=== PATIENT | female | born 1940 | race Caucasian/White ===

== ENCOUNTER → 2016-06-28 | Outpatient (CLI) | payer OTHER | END | disposition home or self-care (01) | LOC: LAB.O 17:20 | PROVIDERS: ATTEND Nurse Practitioner Family | DX: G45.9 Transient cerebral ischemic attack, unspecified (principal) ==

== ENCOUNTER → 2016-07-06 | Outpatient (CLI) | payer OTHER | LOC: LAB.O 17:23 | PROVIDERS: ATTEND Nurse Practitioner Family | DX: G45.9 Transient cerebral ischemic attack, unspecified (principal) ==

== ENCOUNTER → 2016-07-20 | Outpatient (CLI) | payer OTHER | END | disposition home or self-care (01) | LOC: LAB 17:27 | PROVIDERS: ATTEND Nurse Practitioner Family | DX: G45.9 Transient cerebral ischemic attack, unspecified (principal) ==

== ENCOUNTER → 2016-08-04 | Outpatient (CLI) | payer OTHER | END | disposition home or self-care (01) | LOC: LAB.O 17:22 | PROVIDERS: ATTEND Orthopaedic Surgery Adult Reconstructive Orthopaedic Surgery | DX: G45.9 Transient cerebral ischemic attack, unspecified (principal); M85.89 Other specified disorders of bone density and structure, multiple sites; E55.9 Vitamin D deficiency, unspecified ==

== ENCOUNTER 2016-08-16 18:14 | Emergency (ER) | payer OTHER ==
--- NOTE | 2016-08-16 18:25 | ED.PDOC ---
History of Present Illness - General Source: patient, RN notes reviewed, Vital Signs reviewed, family Exam Limitations: no limitations - History of Present Illness Initial Comments: Patient was walking out to car after getting blood drawn as an outpatient and tripped and fell. She is having R buttock/posterior hip pain. No numbness, tingling or weakness. Occurred: just prior to arrival Pain - Lower Extremity: moderate: Right Thigh/Hip - Posterior hip/pelvis Method of Injury: fell Improving Factors: rest Worsening Factors: movement <Lita Albarran - Last Filed: 08/16/16 18:23> <Joslyn Byrd - Last Filed: 08/16/16 19:38> - General Chief Complaint: Lower Extremity Injury Stated Complaint: R buttock pain Time Seen by Provider: 08/16/16 18:22 - History of Present Illness Allergies/Adverse Reactions: Allergies Codeine Allergy (Verified 08/16/16 18:20) Penicillins Allergy (Verified 08/16/16 18:20) Home Medications: Ambulatory Orders Docusate Sodium [Stool Softener] 100 mg PO BID 10/15/15 Furosemide 20 mg PO DAILY 10/15/15 Gabapentin 400 mg PO TID 10/15/15 Isosorbide Mononitrate [Imdur] 30 mg PO DAILY 10/15/15 Omeprazole 20 mg PO DAILY 10/15/15 Ondansetron [Zofran Odt] 4 mg PO Q4H PRN #10 tab 10/15/15 Potassium Chloride [Klor-Con] 20 meq PO DAILY 10/15/15 Telmisartan 40 mg PO DAILY 10/15/15 Warfarin Sodium 4 mg PO DAILY 10/15/15 Rosuvastatin Calcium [Crestor] 10 mg PO DAILY 05/04/16 tiZANidine [Zanaflex] 4 mg PO TID PRN #30 tab 08/16/16 Review of Systems - Review of Systems Constitutional: States: no symptoms reported Musculoskeletal: States: see HPI Skin: States: no symptoms reported Neurological: States: no symptoms reported, numbness, paresthesia, tingling, weakness <Lita Albarran - Last Filed: 08/16/16 18:23> Past Medical History (General) - Patient Medical History Hx Seizures: No Hx Stroke: Yes - CVA,TIA's Hx Dementia: No Hx Asthma: No Hx of COPD: No Hx Cardiac Disorders: Yes - CABG Hx Congestive Heart Failure: Yes Hx Pacemaker: No Hx Hypertension: Yes Hx Thyroid Disease: Yes Hx Diabetes: No Hx Gastroesophageal Reflux: Yes Hx Renal Disease: No Hx Cancer: No - Vaccination History Hx Tetanus, Diphtheria Vaccination: No Hx Influenza Vaccination: No Hx Pneumococcal Vaccination: Yes - Social History Hx Tobacco Use: No Hx Alcohol Use: No Hx Depression: No <Lita Albarran - Last Filed: 08/16/16 18:23> Family Medical History - Family History Mother Family History: Unknown Living Status: <Lita Albarran - Last Filed: 08/16/16 18:23> Physical Exam - Physical Exam General Appearance: Alert, Comfortable, Frail, No apparent distress, Well Groomed, Well Hydrated, Well Nourished Cardiovascular/Respiratory: normal peripheral pulses Thigh/Hip: bone tenderness - R posterior pelvis/SI joint, soft tissue tenderness , other - Good ROM in hip joint Leg: normal inspection, non-tender, no evidence of injury, normal ROM Ankle: normal inspection, non-tender, no evidence of injury, normal ROM Foot: normal inspection, non-tender, no evidence of injury, normal ROM Neuro/Tendon: normal sensation, normal motor functions, normal tendon functions Mental Status: alert, oriented x 3 <Lita Albarran - Last Filed: 08/16/16 18:23> Progress - Progress Progress: 08/16/16 19:31 Patient has severe osteoporosis and has a provider in [place] that she sees for this--Benjamin Donaldson PA-C. She has an appointment with him in 3 days. She will be given a copy of her x-ray report so that he may determine if Patient needs an MRI. Patient has Tramadol at home for pain. She will be given a prescription for a muscle relaxer as well. - Results/Orders Results/Orders: 08/16/16 18:20 Temperature 98 F Pulse Rate [ 68 Left Apical] Respiratory 20 Rate Blood Pressure 122/59 [Left Arm] O2 Sat by Pulse 99 Oximetry - EKG/XRAY/CT XRAY: pelvis Xray Comments: Limited ability to assess for subacute fracture, lucency at joint space. <Joslyn Byrd - Last Filed: 08/16/16 19:38> Departure <Lita Albarran - Last Filed: 08/16/16 18:23> - Departure ICD-10 Supporting Text: Contusion of right buttock just inferior/lateral to sacroiliac joint. Time of Disposition: 19:35 Diet: resume usual diet <Joslyn Byrd - Last Filed: 08/16/16 19:38> - Departure Clinical Impression: Contusion Qualifiers: Encounter type: initial encounter Contusion area: lower back Qualifier Code: ( S30.0XXA) Contusion of lower back and pelvis, initial encounter Sacroiliac (ligament) sprain Qualifiers: Encounter type: initial encounter Qualifier Code: (S33.6XXA) Sprain of sacroiliac joint, initial encounter Disposition: Discharge to Home or Self Care Condition: Fair Departure Forms: ED Discharge - Pt. Copy, Patient Portal Self Enrollment Referrals: CAMERON WILSON IV, [employer] [Primary Care Provider] - 1-2 Weeks Prescriptions: tiZANidine [Zanaflex] 4 mg PO TID PRN #30 tab PRN Reason: Muscle Spasms Home Medications: Ambulatory Orders Docusate Sodium [Stool Softener] 100 mg PO BID 10/15/15 Furosemide 20 mg PO DAILY 10/15/15 Gabapentin 400 mg PO TID 10/15/15 Isosorbide Mononitrate [Imdur] 30 mg PO DAILY 10/15/15 Omeprazole 20 mg PO DAILY 10/15/15 Ondansetron [Zofran Odt] 4 mg PO Q4H PRN #10 tab 10/15/15 Potassium Chloride [Klor-Con] 20 meq PO DAILY 10/15/15 Telmisartan 40 mg PO DAILY 10/15/15 Warfarin Sodium 4 mg PO DAILY 10/15/15 Rosuvastatin Calcium [Crestor] 10 mg PO DAILY 05/04/16 tiZANidine [Zanaflex] 4 mg PO TID PRN #30 tab 08/16/16 Additional Instructions: Keep appointment on 08/20/2016 with Benjamin Donaldson PA-C. Follow up in ED for any decreased ability to walk or increased pain.
--- NOTE | 2016-08-16 19:09 | RAD ---
EXAM: Pelvis,2 or More Views CLINICAL INDICATION: 75-year-old female with pain in RIGHT sacroiliac joint status post fall. COMPARISON: None. TECHNIQUE: Two views of the pelvis were obtained in frontal and frog-leg projection. FINDINGS: There is no fracture or dislocation. The joint spaces are preserved. No soft tissue abnormalities are seen. The mid to distal sacrum is poorly visualized secondary to overlying bowel gas and fecal content. The bones are diffusely demineralized limiting assessment for subtle fracture. LEFT total hip arthroplasty present with hardware components in gross anatomic alignment. Approximately 3 mm of lucency surrounds the femoral stem incompletely visualized raising the concern for age indeterminate loosening. IMPRESSION: 1. Degenerative change and diffuse demineralization limiting assessment for subtle acute fracture, however without gross acute radiographic abnormality. If there is clinical concern for sacroiliac insufficiency fracture or gross acute fracture, MRI is recommended. 2. Approximately 3 mm of lucency surrounds the femoral stem incompletely visualized raising the concern for age indeterminate loosening. Electronically signed by: Shannan Helton MD 08/16/2016 7:08 PM CDT
[2016-08-16] MEDS ORDERED: tiZANidine 4 MG TAB PO ONE (19:30)
[2016-08-16] MEDS ORDERED: ACETAMINOPHEN 325 MG TAB PO ONE (19:30)
[2016-08-16 19:51] VITALS: BP 119/51; TEMP 98; O2SAT 98
== END 2016-08-16 19:51 | disposition home or self-care (01) ==
LOC: ER 18:14
DX: S30.0XXA Contusion of lower back and pelvis, initial encounter (principal); S33.6XXA Sprain of sacroiliac joint, initial encounter; I11.0 Hypertensive heart disease with heart failure; I50.9 Heart failure, unspecified; E07.9 Disorder of thyroid, unspecified; K21.9 Gastro-esophageal reflux disease without esophagitis; Z86.73 Personal history of transient ischemic attack (TIA), and cerebral infarction without residual deficits; Z95.1 Presence of aortocoronary bypass graft; Z79.899 Other long term (current) drug therapy; Z79.01 Long term (current) use of anticoagulants; Z88.6 Allergy status to analgesic agent; Z88.0 Allergy status to penicillin; W01.0XXA Fall on same level from slipping, tripping and stumbling without subsequent striking against object, initial encounter; Y92.481 Parking lot as the place of occurrence of the external cause

== ENCOUNTER → 2016-08-16 | Outpatient (CLI) | payer OTHER | END | disposition home or self-care (01) | LOC: LAB 17:45 | PROVIDERS: ATTEND Nurse Practitioner Family | DX: G45.9 Transient cerebral ischemic attack, unspecified (principal) ==

== ENCOUNTER → 2016-09-16 | Outpatient (CLI) | payer OTHER | END | disposition home or self-care (01) | LOC: LAB.O 17:26 | PROVIDERS: ATTEND Nurse Practitioner Family | DX: G45.9 Transient cerebral ischemic attack, unspecified (principal) ==

== ENCOUNTER → 2016-11-10 | Outpatient (CLI) | payer OTHER | LOC: LAB.O 17:27 | PROVIDERS: ATTEND Nurse Practitioner Family | DX: G45.9 Transient cerebral ischemic attack, unspecified (principal) ==

== ENCOUNTER → 2017-01-05 | Outpatient (CLI) | payer OTHER | END | disposition home or self-care (01) | LOC: LAB.O 17:33 | PROVIDERS: ATTEND Nurse Practitioner Family | DX: G45.9 Transient cerebral ischemic attack, unspecified (principal) ==

== ENCOUNTER 2017-01-17 04:36 | Emergency (ER) | payer OTHER ==
[2017-01-17 04:55] VITALS: TEMP 97.7; O2SAT 96
--- NOTE | 2017-01-17 05:10 | ED.PDOC ---
History of Present Illness - General Chief Complaint: Upper Extremity Injury Stated Complaint: left inner wrist pain radiates to elbow Time Seen by Provider: 01/17/17 05:03 Source: patient, RN notes reviewed, Vital Signs reviewed Exam Limitations: no limitations - History of Present Illness Initial Comments: Patient comes in with L hand/wrist pain that started last night. Pain kept her awake. Does not recall any injury. She did have a blister show up on the lateral aspect of her wrist on Tuesday. She accidentally popped it. Occurred: yesterday Pain - Upper Extremity: moderate: Hand, left Method of Injury: unknown Improving Factors: nothing Worsening Factors: nothing Allergies/Adverse Reactions: Allergies Codeine Allergy (Verified 01/17/17 04:55) Penicillins Allergy (Verified 01/17/17 04:55) Home Medications: Ambulatory Orders Docusate Sodium [Stool Softener] 100 mg PO BID 10/15/15 Furosemide 20 mg PO DAILY 10/15/15 Gabapentin 400 mg PO TID 10/15/15 Isosorbide Mononitrate [Imdur] 30 mg PO DAILY 10/15/15 Omeprazole 20 mg PO DAILY 10/15/15 Potassium Chloride [Klor-Con] 20 meq PO DAILY 10/15/15 Telmisartan 40 mg PO DAILY 10/15/15 Warfarin Sodium 4 mg PO DAILY 10/15/15 Rosuvastatin Calcium [Crestor] 10 mg PO DAILY 05/04/16 Cholecalciferol [Vitamin D] 1,000 unit PO DAILY 01/17/17 Sulfa/Trimeth 800/160 (Ds) Tab [Bactrim DS Tab] 1 ea PO BID #14 tab 01/17/17 Thyroid [[place] Thyroid] 15 mg PO DAILY 01/17/17 Review of Systems - Review of Systems Constitutional: States: no symptoms reported Respiratory: States: no symptoms reported Cardiology: States: no symptoms reported Musculoskeletal: States: see HPI Skin: States: see HPI Neurological: States: no symptoms reported. Denies: numbness, paresthesia, tingling, weakness All other Systems: No Change from Baseline Past Medical History (General) - Patient Medical History Hx Seizures: No Hx Stroke: Yes - CVA,TIA's Hx Dementia: No Hx Asthma: No Hx of COPD: No Hx Cardiac Disorders: Yes - CABG Hx Congestive Heart Failure: Yes Hx Pacemaker: No Hx Hypertension: Yes Hx Thyroid Disease: Yes Hx Diabetes: No Hx Gastroesophageal Reflux: Yes Hx Renal Disease: No Hx Cancer: No Hx of HIV: No Hx Hepatitis C: No Hx MRSA: No Surgical History: appendectomy, cholecystectomy, Hysterectomy - Vaccination History Hx Tetanus, Diphtheria Vaccination: No Hx Influenza Vaccination: No Hx Pneumococcal Vaccination: Yes - Social History Hx Tobacco Use: No Hx Chewing Tobacco Use: No Hx Alcohol Use: No Hx Substance Use: No Hx Substance Use Treatment: No Hx Depression: No Feels Threatened In Home Enviroment: No Feels Threatened In a Relationship: No Hx Physical Abuse: No Hx Emotional Abuse: No Hx Suspected Abuse: No - Female History Patient : No Family Medical History - Family History Mother Family History: Unknown Living Status: Hx Family Asthma: No Physical Exam - Physical Exam General Appearance: Alert, Anxious, Comfortable, No apparent distress, Well Developed, Well Groomed, Well Hydrated, Well Nourished Cardiovascular/Respiratory: no respiratory distress Elbow/Forearm Exam: normal inspection, no evidence of injury, normal ROM, soft tissue tenderness - distal forearm Wrist Exam: normal ROM, abrasions, pain, soft tissue tenderness - lateral aspect of L wrist: central wound, superficial, with mild surrounding erythema, tenderness & warmth Hand Exam: normal inspection, no evidence of injury, bone tenderness - L hand tender over metacarpals 1-4 w/ no obvious injury or deformity, soft tissue tenderness Neuro/Tendon: normal sensation, normal motor functions, normal tendon functions , responds to pain, no evidence tendon injury Mental Status: alert, oriented x 3 Skin Exam: normal color - except area on L lateral wrist: erythematous, tender and mildly swollen w/ central wound., warm/dry Comments: Vital Signs 01/17/17 04:44 Temperature 97.7 F Pulse Rate [ 70 monitor] Respiratory 18 Rate Blood Pressure 167/82 [Left Arm] O2 Sat by Pulse 96 Oximetry Progress - Progress Progress: 01/17/17 05:14 Most likely an early cellulitis but will get X-ray given nigel tenderness of hand away from area of obvious cellulitis. 01/17/17 05:45 Discussed potential interaction of Warfarin and Bactrim. Recommended getting INR checked on Tuesday to make sure her blood is not getting too thin. - EKG/XRAY/CT Xray Comments: L hand/wrist: no fracture, osteopenia Departure - Departure Clinical Impression: Cellulitis of wrist Time of Disposition: 05:46 Disposition: Discharge to Home or Self Care Condition: Good Departure Forms: ED Discharge - Pt. Copy, Patient Portal Self Enrollment Instructions: DI for Cellulitis -- Adult Diet: resume usual diet Activity: increase activity as tolerated Referrals: CAMERON WILSON IV, [employer] DEMON[employer]ATOR [Primary Care Provider] - 1-2 Weeks Prescriptions: Sulfa/Trimeth 800/160 (Ds) Tab [Bactrim DS Tab] 1 ea PO BID #14 tab Home Medications: Ambulatory Orders Docusate Sodium [Stool Softener] 100 mg PO BID 10/15/15 Furosemide 20 mg PO DAILY 10/15/15 Gabapentin 400 mg PO TID 10/15/15 Isosorbide Mononitrate [Imdur] 30 mg PO DAILY 10/15/15 Omeprazole 20 mg PO DAILY 10/15/15 Potassium Chloride [Klor-Con] 20 meq PO DAILY 10/15/15 Telmisartan 40 mg PO DAILY 10/15/15 Warfarin Sodium 4 mg PO DAILY 10/15/15 Rosuvastatin Calcium [Crestor] 10 mg PO DAILY 05/04/16 Cholecalciferol [Vitamin D] 1,000 unit PO DAILY 01/17/17 Sulfa/Trimeth 800/160 (Ds) Tab [Bactrim DS Tab] 1 ea PO BID #14 tab 01/17/17 Thyroid [[place] Thyroid] 15 mg PO DAILY 01/17/17 Additional Instructions: Hot compresses to wrist 3-5X/day Get INR checked on Tuesday due to potential interaction with Bactrim and Warfarin.
--- NOTE | 2017-01-17 05:41 | RAD ---
EXAM DESCRIPTION: Hand,Left 3 Views CLINICAL HISTORY: 76 years, Female, pain w/ unknown injury COMPARISON: None. FINDINGS: The patient is profoundly osteopenic. There is otherwise no acute fracture or dislocation. The bony alignment is normal. There is no focal soft tissue swelling. The distal radius/ ulna, carpal, metacarpal, and phalangeal bones are normal in appearance. The intercarpal, carpometacarpal, metacarpophalangeal, and interphalangeal joints are normal in appearance. IMPRESSION: Profound osteopenia, otherwise no acute fracture or dislocation. Electronically signed by: Selina Solorio MD 01/17/2017 5:39 AM CDT
[2017-01-17] MEDS ORDERED: SULFA/TRIMETH 800/160 (DS) TAB 1 EA TAB PO ONE (05:43)
--- NOTE | 2017-01-17 05:46 | RAD ---
Procedure: XR WRIST 3 OR MORE VIEWS Exam Date: 01/17/2017 Ordering Provider: Lita Albarran Clinical Indication: pain w/ unknown injury Comparison: None FINDINGS: Diffuse demineralization of the bones. Vascular calcifications. Degenerative changes at the first CMC joint as well as the radiocarpal joint. No acute fracture or dislocation. No lytic or sclerotic lesions. IMPRESSION: 1. No acute fracture or dislocation of the left wrist. Electronically signed by: Andrew Perez MD 01/17/2017 5:45 AM CDT
[2017-01-17 05:59] VITALS: BP 144/80
== END 2017-01-17 05:58 | disposition home or self-care (01) ==
LOC: ER 04:36
DX: L03.114 Cellulitis of left upper limb (principal); I11.0 Hypertensive heart disease with heart failure; I10 Essential (primary) hypertension; E07.9 Disorder of thyroid, unspecified; K21.9 Gastro-esophageal reflux disease without esophagitis; Z95.1 Presence of aortocoronary bypass graft; Z86.73 Personal history of transient ischemic attack (TIA), and cerebral infarction without residual deficits; Z79.01 Long term (current) use of anticoagulants; Z79.899 Other long term (current) drug therapy; Z88.0 Allergy status to penicillin; Z88.6 Allergy status to analgesic agent

== ENCOUNTER → 2017-02-28 | Outpatient (CLI) | payer OTHER | END | disposition home or self-care (01) | LOC: LAB.O 17:25 | PROVIDERS: ATTEND Nurse Practitioner Family | DX: G45.9 Transient cerebral ischemic attack, unspecified (principal) ==

== ENCOUNTER → 2017-03-03 | Outpatient (CLI) | payer OTHER ==
--- NOTE | 2017-03-04 12:00 | NM ---
EXAM DESCRIPTION: Bone Scan, Whole Body CLINICAL HISTORY: 76-year-old, female, left hip pain. COMPARISON: Pelvic radiograph dated August 16, 2016. TECHNIQUE: Following intravenous administration of 24.7 mCi technetium 99m MDP, delayed planar spot images were obtained of the head and neck, thorax, abdomen and pelvis, and bilateral lower extremities. FINDINGS: Skull: Homogeneous physiologic radiotracer activity demonstrated within the calvarium and neck. Spine: Homogeneous physiologic radiotracer activity seen within the cervical, thoracic, and lumbar spine. Thorax: Homogeneous radiotracer activity seen throughout the ribs bilaterally. Abdomen/pelvis: Urinary activity demonstrated within the bilateral kidneys and urinary bladder. Extremities: There is increased radiotracer uptake in the left greater trochanter as well as around the periprosthetic region in the proximal left femur, including the intramedullary component as well as the left femoral neck. Soft tissue: Normal distribution of radiopharmaceutical. IMPRESSION: 1. Nonspecific increased radiotracer uptake in the proximal left femur with respect uptake in the periprosthetic region including the left femoral neck, greater trochanter, and periprosthetic intramedullary component. This could be secondary to reactive changes versus prosthesis loosening versus infection. Please correlate clinically and with laboratory values. If there is clinical concern for prosthesis loosening and infection, three-phase bone scan along with indium-111 white blood cell scan may be helpful to help differentiate. Electronically signed by: Morgan Szymanski MD 03/04/2017 11:58 AM CDT
== END | disposition home or self-care (01) ==
LOC: NM 09:41
PROVIDERS: ATTEND Orthopaedic Surgery
DX: M25.552 Pain in left hip (principal)

== ENCOUNTER → 2017-05-06 | Outpatient (CLI) | payer OTHER | END | disposition home or self-care (01) | LOC: LAB.O 11:26 | PROVIDERS: ATTEND Nurse Practitioner Family | DX: G45.9 Transient cerebral ischemic attack, unspecified (principal) ==

== ENCOUNTER → 2017-05-12 | Outpatient (CLI) | payer OTHER | END | disposition home or self-care (01) | LOC: LAB.O 17:34 | PROVIDERS: ATTEND Nurse Practitioner Family | DX: Z79.01 Long term (current) use of anticoagulants (principal) ==

== ENCOUNTER → 2017-06-03 | Outpatient (CLI) | payer OTHER | LOC: LAB.O 11:28 | PROVIDERS: ATTEND Nurse Practitioner Family | DX: Z79.01 Long term (current) use of anticoagulants (principal) ==

== ENCOUNTER 2017-06-24 23:44 | Emergency (ER) | payer OTHER ==
[2017-06-25] MEDS ORDERED: HYDROmorphone HCL INJ 2 MG/ML VIAL IM ONE (00:01)
[2017-06-25] MEDS ORDERED: ONDANSETRON ODT 8 MG TAB SL ONE (00:02)
--- NOTE | 2017-06-25 00:06 | ED.PDOC ---
History of Present Illness - General Chief Complaint: General Stated Complaint: Lower extremity pain Time Seen by Provider: 06/24/17 23:47 Source: patient - History of Present Illness Initial Comments: PAIN TO THE RIGHT KNEE AND LOWER FEMUR FOR THE PAST WEEK. NO HX OF RECENT INJURY. THE PAIN SEEMS TO BE MORE ON WEIGHT BEARING AND WHENEVER SHE LIE DOWN. SHE RATES THE PAIN AT 8/10 Timing/Duration: 1 week, getting worse Severity: severe Improving Factors: nothing Worsening Factors: movement Associated Symptoms: denies symptoms Allergies/Adverse Reactions: Allergies Codeine Allergy (Verified 01/17/17 04:55) Penicillins Allergy (Verified 01/17/17 04:55) Home Medications: Ambulatory Orders Docusate Sodium [Stool Softener] 100 mg PO BID 10/15/15 Furosemide 20 mg PO DAILY 10/15/15 Gabapentin 400 mg PO TID 10/15/15 Isosorbide Mononitrate [Imdur] 30 mg PO DAILY 10/15/15 Omeprazole 20 mg PO DAILY 10/15/15 Potassium Chloride [Klor-Con] 20 meq PO DAILY 10/15/15 Telmisartan 40 mg PO DAILY 10/15/15 Warfarin Sodium 4 mg PO DAILY 10/15/15 Rosuvastatin Calcium [Crestor] 10 mg PO DAILY 05/04/16 Cholecalciferol [Vitamin D] 1,000 unit PO DAILY 01/17/17 Sulfa/Trimeth 800/160 (Ds) Tab [Bactrim DS Tab] 1 ea PO BID #14 tab 01/17/17 Thyroid [[place] Thyroid] 15 mg PO DAILY 01/17/17 Review of Systems - Review of Systems Constitutional: States: no symptoms reported EENTM: States: no symptoms reported Respiratory: States: no symptoms reported Cardiology: States: no symptoms reported Gastrointestinal/Abdominal: States: no symptoms reported Genitourinary: States: no symptoms reported Musculoskeletal: States: joint pain, muscle pain Skin: States: no symptoms reported Neurological: States: no symptoms reported Endocrine: States: no symptoms reported Hematologic/Lymphatic: States: no symptoms reported Past Medical History (General) - Patient Medical History Hx Seizures: No Hx Stroke: Yes Hx Dementia: No Hx Asthma: No Hx of COPD: No Hx Cardiac Disorders: Yes Hx Congestive Heart Failure: Yes Hx Pacemaker: No Hx Hypertension: Yes Hx Thyroid Disease: Yes Hx Diabetes: No Hx Gastroesophageal Reflux: No Hx Renal Disease: No Hx Cancer: No Hx of HIV: No Hx Hepatitis C: No Hx MRSA: No Surgical History: coronary bypass surgery - Vaccination History Hx Tetanus, Diphtheria Vaccination: Yes Hx Influenza Vaccination: No Hx Pneumococcal Vaccination: No - Social History Hx Tobacco Use: No Hx Chewing Tobacco Use: No Hx Alcohol Use: No Hx Substance Use: No Hx Substance Use Treatment: No Hx Depression: No Hx Physical Abuse: No Hx Emotional Abuse: No Hx Suspected Abuse: No - Female History Patient : No - Triage Comment ED Triage Comment: Presents to ER--POV---W/chair----c/o Rt knee pain x 3 days--- denies any trauma to rt knee. Family Medical History - Family History Mother Family History: Unknown Living Status: Hx Family Asthma: No Physical Exam - Physical Exam General Appearance: Alert, Obvious distress Eye Exam: bilateral normal Ears, Nose, Throat: normal ENT inspection, normal pharynx Neck: non-tender, full range of motion, supple, normal inspection Respiratory: chest non-tender, lungs clear, normal breath sounds, no respiratory distress, no accessory muscle use Cardiovascular/Chest: normal peripheral pulses, regular rate, rhythm, no edema, no gallop, no JVD, no murmur Peripheral Pulses: radial,right: 2+, radial,left: 2+, dorsalis pedis,right: 2+, dorsalis pedis,left: 2+ Gastrointestinal/Abdominal: normal bowel sounds, non tender, soft, no organomegaly, no pulsatile mass Rectal Exam: deferred Back Exam: normal inspection Extremity: no pedal edema, normal capillary refill, pelvis stable Neurologic: no motor/sensory deficits, alert, normal mood/affect, oriented x 3 Skin Exam: normal color Lymphatic: no adenopathy Progress - Results/Orders Results/Orders: X RAYS OF THE FEMUR AND THE KNEE ARE NEGATIVE FOR FRACTURE. Departure - Departure Clinical Impression: Knee pain, right Qualifiers: Chronicity: acute Qualified Code(s): M25.561 - Pain in right knee Time of Disposition: 01:13 Disposition: Discharge to Home or Self Care Condition: Good Departure Forms: ED Discharge - Pt. Copy, Patient Portal Self Enrollment Diet: resume usual diet Referrals: CAMERON WILSON IV FIBER DESIGNER [Primary Care Provider] - 1-2 Weeks Home Medications: Ambulatory Orders Docusate Sodium [Stool Softener] 100 mg PO BID 10/15/15 Furosemide 20 mg PO DAILY 10/15/15 Gabapentin 400 mg PO TID 10/15/15 Isosorbide Mononitrate [Imdur] 30 mg PO DAILY 10/15/15 Omeprazole 20 mg PO DAILY 10/15/15 Potassium Chloride [Klor-Con] 20 meq PO DAILY 10/15/15 Telmisartan 40 mg PO DAILY 10/15/15 Warfarin Sodium 4 mg PO DAILY 10/15/15 Rosuvastatin Calcium [Crestor] 10 mg PO DAILY 05/04/16 Cholecalciferol [Vitamin D] 1,000 unit PO DAILY 01/17/17 Sulfa/Trimeth 800/160 (Ds) Tab [Bactrim DS Tab] 1 ea PO BID #14 tab 01/17/17 Thyroid [[place] Thyroid] 15 mg PO DAILY 01/17/17 Comments: FOLLOW UP WITH YOUR ORTHOPEDIC SURGEON CONSIDER PAIN MANAGEMENT
--- NOTE | 2017-06-25 00:40 | RAD ---
EXAM: Femur,Right (accession [id number]), Knee,Right 2 or More Views (accession [id number]) CLINICAL INDICATION: 76-year-old female with painful distal femur. TECHNIQUE: Three views RIGHT knee were obtained in AP, lateral and patellar projections. Four views of the RIGHT hip were obtained in AP and lateral projection. COMPARISON: None. FINDINGS: Overall the bones are severely demineralized limiting assessment for subtle fracture. RIGHT knee: There is no fracture or dislocation. The joint spaces are preserved. No soft tissue abnormalities are seen. RIGHT femur: There is no fracture or dislocation. Mild degenerative changes of the RIGHT hip with femoral acetabular joint space narrowing, subchondral sclerosis and osteophyte formation. The joint spaces are otherwise preserved. No soft tissue abnormalities are seen. Vascular calcification present within the soft tissues. IMPRESSION: No acute radiographic abnormality. Electronically signed by: Shannan Helton MD 06/25/2017 12:40 AM ESTHETICIAN/SKIN THERAPIST
--- NOTE | 2017-06-25 00:40 | RAD ---
EXAM: Femur,Right (accession [id number]), Knee,Right 2 or More Views (accession [id number]) CLINICAL INDICATION: 76-year-old female with painful distal femur. TECHNIQUE: Three views RIGHT knee were obtained in AP, lateral and patellar projections. Four views of the RIGHT hip were obtained in AP and lateral projection. COMPARISON: None. FINDINGS: Overall the bones are severely demineralized limiting assessment for subtle fracture. RIGHT knee: There is no fracture or dislocation. The joint spaces are preserved. No soft tissue abnormalities are seen. RIGHT femur: There is no fracture or dislocation. Mild degenerative changes of the RIGHT hip with femoral acetabular joint space narrowing, subchondral sclerosis and osteophyte formation. The joint spaces are otherwise preserved. No soft tissue abnormalities are seen. Vascular calcification present within the soft tissues. IMPRESSION: No acute radiographic abnormality. Electronically signed by: Shannan Helton MD 06/25/2017 12:40 AM 911 TELECOMMUNICATOR
[2017-06-25 00:52] VITALS: TEMP 97.7; O2SAT 94
[2017-06-25] MEDS ORDERED: methylPREDNISolone SODIUM SUC 125 MG/2 ML VIAL IM ONE (01:11)
[2017-06-25 01:41] VITALS: BP 117/62
== END 2017-06-25 01:30 | disposition home or self-care (01) ==
LOC: ER 23:44
DX: M25.561 Pain in right knee (principal); I11.0 Hypertensive heart disease with heart failure; I50.9 Heart failure, unspecified; E07.9 Disorder of thyroid, unspecified; Z95.1 Presence of aortocoronary bypass graft; Z79.01 Long term (current) use of anticoagulants; Z88.0 Allergy status to penicillin
CPT/HCPCS: 73551; 73560; J1170; J2930

== ENCOUNTER → 2017-09-20 | Outpatient (CLI) | payer OTHER | LOC: GMAM 17:20 | PROVIDERS: ATTEND Family Medicine | DX: I10 Essential (primary) hypertension (principal) ==

== ENCOUNTER → 2017-10-18 | Outpatient (CLI) | payer MEDICARE, OTHER | LOC: RESP 15:00 | PROVIDERS: ATTEND Family Medicine | DX: I25.110 Atherosclerotic heart disease of native coronary artery with unstable angina pectoris (principal) ==

== ENCOUNTER → 2018-03-13 | Outpatient (CLI) | payer OTHER | LOC: BFHH 12:01 | PROVIDERS: ATTEND Family Medicine | DX: Z79.01 Long term (current) use of anticoagulants (principal) ==

== ENCOUNTER → 2018-03-16 | Outpatient (CLI) | payer OTHER | LOC: GMAM 11:25 | PROVIDERS: ATTEND Family Medicine | DX: M25.579 Pain in unspecified ankle and joints of unspecified foot (principal) ==

== ENCOUNTER → 2018-03-17 | Outpatient (CLI) | payer OTHER ==
--- NOTE | 2018-03-20 08:06 | MRI ---
Study: MRI of the Right Ankle. Indication: M25.571 Technique: Multiplanar, multi sequence MRI of the right ankle was obtained without intravenous contrast. Comparison: None Findings: Fairly extensive patchy marrow edema throughout essentially all bones of the ankle including the distal tibia, distal fibula, talus, calcaneus, cuneiforms, and proximal aspects of the metatarsals. These changes may be contusive or stress-related. Given the distribution, infection is felt less likely, however ESR and CRP would likely prove useful. Complex regional pain syndrome is a consideration. Small tibiotalar and subtalar joint effusions. Scattered mild osteoarthritis throughout the midfoot noted. 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 Moderate plantar calcaneal heel spurring without active inflammation of the plantar fascia. Ankle mortise alignment normal. Talar dome intact. Extensive subcutaneous edema about the ankle. Trace tenosynovitis medial tendons and peroneal tendons without tear. Anterior tendons and Achilles tendon intact. Prior sprains anterior talofibular ligament, calcaneofibular ligament, anterior tibiofibular ligament, deep deltoid ligament noted. No acute fluid-filled full-thickness ligament tear identified. Impression: Subcutaneous edema throughout the ankle with extensive marrow edema throughout essentially all bones of the visualized ankle with differential considerations as detailed above. No fracture plane identified. Mild osteoarthritis throughout the midfoot. Trace tenosynovitis medial tendons and peroneal tendons without tear. 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 Electronically signed by: Johny Sinha MD 03/20/2018 8:05 AM SHOPPER'S AIDE
== END ==
LOC: MRI 13:00
PROVIDERS: ATTEND Family Medicine
DX: M19.071 Primary osteoarthritis, right ankle and foot (principal); M65.871 Other synovitis and tenosynovitis, right ankle and foot; M25.571 Pain in right ankle and joints of right foot

== ENCOUNTER 2018-03-27 14:52 | Emergency (ER) | payer OTHER ==
--- NOTE | 2018-03-27 15:35 | RAD ---
EXAM DESCRIPTION: Pelvis: CR/DR/XR CLINICAL HISTORY: fall; low back pain COMPARISON: None Available. TECHNIQUE: One view FINDINGS: AP view of pelvis with prior left total hip arthroplasty with lateral plate abutting the upper femur and the femoral component. Again noted is the acetabular component bulging into the inner table of the pelvic cavity at the junction of the acetabulum and left pubic bone. Screws again seen. Minimal radiolucency around the acetabular component and screws which was also seen on the prior study. The included visualized hardware is stable in position. Soft tissue calcifications. Overall bone density decreased. No obvious fracture. Upper pelvic bones more difficult to visualize due to body habitus and decreased bone density. Significant atherosclerotic calcifications in the iliac vessels. IMPRESSION: Prior right total hip arthroplasty stable in position. There may be bone loosening around the acetabular component and acetabular screws, but this is stable. Mediastinal component is again seen to displace the cortex of the pelvic cavity where the left acetabulum and pubic bone joint. Stable. No new fractures. Electronically signed by: Thad Mendez MD 03/27/2018 3:33 PM [facility]
--- NOTE | 2018-03-27 15:44 | CT ---
EXAM DESCRIPTION: Head: Computed Tomography. CLINICAL HISTORY: fall, hit head and takes coumadin COMPARISON: Radiograph of the left hip and pelvic bone today. TECHNIQUE: Non-helical axial scans through the skull and brain, at 2.5 x 20 mm intervals, non-contrast. Coronal and sagittal 2.0 mm reconstructions. Total Exam DLP: 859.97 mGy-cm. This exam was performed according to our departmental dose-optimization program which includes automated exposure control, adjustment of the mA and/or kV according to patient size and/or use of iterative reconstruction technique; to reduce radiation dose to as low as reasonably achievable (ALARA). FINDINGS: No hemorrhage, no mass-effect, and no midline shift. 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 No mass effect or displacement. Craniotomy changes in the overlying left frontal and parietal bones. Also minimal atrophy around the frontal horn white matter of the left lateral ventricle with dilation of the frontal horn. No abnormal radiodense material in the brain parenchyma. Vascular calcifications anterior; physiologic calcifications in the pineal gland and choroid plexus. No effacement or displacement of the ventricles, CSF spaces, or subdural spaces. No extra axial fluid collection or hemorrhage. No gross abnormalities of the bony calvarium. Chronic mucoperiosteal thickening in the frontal sinuses. Sussy bullosa in the left middle turbinate. Minimal air abutting the lobe of the left orbit but no acute bony abnormality is seen and there are no sinus air-fluid levels. IMPRESSION: 1. No hemorrhage, no mass effect, no midline shift. Previous temporal lobe surgery with encephalomalacia and craniotomy defects in the left frontal and parietal bone. No mass effect. Prominent frontal horn of the left lateral ventricle. Bilateral age-related changes in the periventricular white matter. Minimal chronic paranasal sinusitis. 2. CT scans are insensitive for detecting small CVAs in the first 24 hours after onset. Evaluation of the brain stem is also limited. If symptoms persist, consider NON-EMERGENT MRI scan of the brain with diffusion imaging. Electronically signed by: Thad Mendez MD 03/27/2018 3:42 PM MRI TECHNICIAN
--- NOTE | 2018-03-27 15:57 | RAD ---
EXAM DESCRIPTION: Elbow,Right 3 Views CLINICAL HISTORY: pain post fall COMPARISON: None. TECHNIQUE: 3 views right FINDINGS: Mild degenerative changes are observed in the elbow joint. No fracturing is detected. No joint effusion is seen. IMPRESSION: Degenerative changes are observed. No fracturing is detected. Electronically signed by: Morgan Alvarado MD 03/27/2018 3:56 PM [facility]
--- NOTE | 2018-03-27 17:17 | ED.PDOC ---
History of Present Illness - General Chief Complaint: Trauma Stated Complaint: fall Time Seen by Provider: 03/27/18 15:42 Source: patient Exam Limitations: no limitations - History of Present Illness Initial Comments: Tricia Garcia 77 y/o female stated that she tripped on her walking cane laying on the floor at home and fell lsnded on her bottom and right elbow .Also hit her head on the floor with dull pain on the back of her head but totally gone.Still having dull pain on her elbow right ,lower back and on her bottom.Denies LOC, passing out ,dizziness ,chest pains ,abdominal pains. Timing/Duration: 1-3 hours Severity: moderate Improving Factors: rest Worsening Factors: movement Associated Symptoms: other - see hpi Allergies/Adverse Reactions: Allergies Codeine Allergy (Verified 01/17/17 04:55) Penicillins Allergy (Verified 01/17/17 04:55) Home Medications: Ambulatory Orders Docusate Sodium [Stool Softener] 100 mg PO BID 10/15/15 Furosemide 20 mg PO DAILY 10/15/15 Gabapentin 400 mg PO TID 10/15/15 Isosorbide Mononitrate [Imdur] 30 mg PO DAILY 10/15/15 Omeprazole 20 mg PO DAILY 10/15/15 Potassium Chloride [Klor-Con] 20 meq PO DAILY 10/15/15 Telmisartan 40 mg PO DAILY 10/15/15 Warfarin Sodium 4 mg PO DAILY 10/15/15 Rosuvastatin Calcium [Crestor] 10 mg PO DAILY 05/04/16 Cholecalciferol [Vitamin D] 1,000 unit PO DAILY 01/17/17 Sulfa/Trimeth 800/160 (Ds) Tab [Bactrim DS Tab] 1 ea PO BID #14 tab 01/17/17 Thyroid [[place] Thyroid] 15 mg PO DAILY 01/17/17 Review of Systems - Review of Systems All other Systems: Reviewed and Negative, No Change from Baseline - except as mentioned in HPI Past Medical History (General) - Patient Medical History Hx Seizures: No Hx Stroke: Yes Hx Dementia: No Hx Asthma: No Hx of COPD: No Hx Cardiac Disorders: Yes Hx Congestive Heart Failure: Yes Hx Pacemaker: No Hx Hypertension: Yes Hx Thyroid Disease: Yes Hx Diabetes: No Hx Gastroesophageal Reflux: No Hx Renal Disease: No Hx Cancer: No Hx of HIV: No Hx Hepatitis C: No Hx MRSA: No Surgical History: appendectomy, cholecystectomy, coronary bypass surgery, other - craniotomy;hysterectomy;carotid endarterectomy right,cataract bilateral;hip arthroplasty - Vaccination History Hx Tetanus, Diphtheria Vaccination: Yes Hx Influenza Vaccination: No Hx Pneumococcal Vaccination: No - Social History Hx Tobacco Use: No Hx Chewing Tobacco Use: No Hx Alcohol Use: No Hx Substance Use: No Hx Substance Use Treatment: No Hx Depression: No Hx Physical Abuse: No Hx Emotional Abuse: No Hx Suspected Abuse: No - Activities of Daily Living Patient Lives Alone: No Grooming Ability: Independent Eating (Feeding) Ability: Independent Toileting Ability: Independent - Female History Patient : No Family Medical History - Family History Mother Family History: Unknown Living Status: Hx Family Asthma: No Hx Family Stroke: Yes - dad Physical Exam - Physical Exam General Appearance: Alert, Comfortable, No apparent distress, Other - speech fluent Eye Exam: bilateral normal Ears, Nose, Throat: hearing grossly normal, normal ENT inspection Neck: non-tender, full range of motion, supple, normal inspection Respiratory: chest non-tender, lungs clear, normal breath sounds Cardiovascular/Chest: normal peripheral pulses, regular rate, rhythm, no murmur Peripheral Pulses: radial,right: 2+, radial,left: 2+ Gastrointestinal/Abdominal: normal bowel sounds, non tender, soft Back Exam: vertebral tenderness - lumbar spine Extremity: no calf tenderness, pelvis stable - no pain on external and internal rotation both hips, pedal edema - =1 Neurologic: no motor/sensory deficits, alert Skin Exam: normal color, warm/dry Lymphatic: no adenopathy Progress - Progress Progress: 03/27/18 17:36 Vital Signs - 8 hr 03/27/18 16:11 Pulse Rate [ 63 left brachial] Respiratory 20 Rate Blood Pressure 123/56 [left brachial] O2 Sat by Pulse 100 Oximetry - EKG/XRAY/CT EKG: Sinus, no ST T wave changes Comments: HR-54 XRAY: pelvis - no recent acute FX; CT Ordered: Yes - Head-no hemorrhage ,infarct,midline shift Departure - Departure Clinical Impression: Back pain due to injury, Right elbow pain, Current use of penitentiary anticoagulation Fall at home Qualifiers: Encounter type: initial encounter Qualified Code(s): W19.XXXA - Unspecified fall, initial encounter; Y92.009 - Unspecified place in unspecified non- institutional (private) residence as the place of occurrence of the external cause; Y92.009 - Unspecified place in unspecified non-institutional (private) residence as the place of occurrence of the external cause Headache Qualifiers: Headache type: unspecified Headache chronicity pattern: unspecified pattern Intractability: not intractable Qualified Code(s): R51 - Headache Time of Disposition: 18:28 Disposition: Discharge to Home or Self Care Condition: Fair Departure Forms: ED Discharge - Pt. Copy, Patient Portal Self Enrollment Referrals: CAMERON WILSON IV DIRECTOR [employer] [Primary Care Provider] - 1-2 Weeks Home Medications: Ambulatory Orders Docusate Sodium [Stool Softener] 100 mg PO BID 10/15/15 Furosemide 20 mg PO DAILY 10/15/15 Gabapentin 400 mg PO TID 10/15/15 Isosorbide Mononitrate [Imdur] 30 mg PO DAILY 10/15/15 Omeprazole 20 mg PO DAILY 10/15/15 Potassium Chloride [Klor-Con] 20 meq PO DAILY 10/15/15 Telmisartan 40 mg PO DAILY 10/15/15 Warfarin Sodium 4 mg PO DAILY 10/15/15 Rosuvastatin Calcium [Crestor] 10 mg PO DAILY 05/04/16 Cholecalciferol [Vitamin D] 1,000 unit PO DAILY 01/17/17 Sulfa/Trimeth 800/160 (Ds) Tab [Bactrim DS Tab] 1 ea PO BID #14 tab 01/17/17 Thyroid [[place] Thyroid] 15 mg PO DAILY 01/17/17 Additional Instructions: May take tylenol 500 mg every 6 hours for pain as needed;Return to ER as needed
[2018-03-27] MEDS: ACETAMINOPHEN 325 MG TAB PO ONE (18:01)
[2018-03-27] MEDS: traMADol HCL 50 MG TAB PO ONE (18:01)
--- NOTE | 2018-03-27 18:07 | CT ---
EXAM DESCRIPTION: Lumbar Spine CLINICAL HISTORY: fall/continued pain back COMPARISON: None Available. TECHNIQUE: Transaxial images were obtained without intravenous contrast media. Sagittal and coronal reconstruction was performed. This exam was performed according to our departmental dose-optimization program, which includes automated exposure control, adjustment of the mA and/or kV according to patient size and/or use of iterative reconstruction technique. FINDINGS: There is good alignment of the lumbar spine. Diffuse pronounced osteopenia is noted. Some sacralization of L5 is observed . No extra spinous abnormality is detected. T12-L1: Unremarkable. L1-2: Unremarkable. L2-3: No disc bulge or disc herniation is seen. Facet joint arthritis and mild hypertrophy are observed. Mild right neural foraminal narrowing is observed as result of facet joint arthritis. The left neural foramen is patent L3-4: The exam reveals a minimal central annular bulge. Facet joint arthritis and mild hypertrophy are observed L4-5: Loss of disc height is observed. No disc bulge or disc herniation is seen. The neural foramina are preserved. There is some lumbarization of L5. Posterior bony fusion is observed. L5-S1: This level is essentially fused. No disc bulge or disc herniation is seen. No neural foraminal disease of significance is observed. Facet joint arthritis is observed. Posterior bony fusion is observed. IMPRESSION: No evidence of a fracture is seen. The exam does demonstrate evidence of posterior fusion at the L4-5 and L5-S1 levels. There is partial sacralization of L5. Electronically signed by: Morgan Alvarado MD 03/27/2018 6:06 PM [facility]
[2018-03-27 18:08] VITALS: TEMP 97
[2018-03-27 19:15] VITALS: BP 119/83; O2SAT 98
== END 2018-03-27 18:50 | disposition home or self-care (01) ==
LOC: ER 14:52
DX: R51 Headache (principal); S39.92XA Unspecified injury of lower back, initial encounter; M25.521 Pain in right elbow; I11.0 Hypertensive heart disease with heart failure; I50.9 Heart failure, unspecified; E07.9 Disorder of thyroid, unspecified; W01.0XXA Fall on same level from slipping, tripping and stumbling without subsequent striking against object, initial encounter; Y92.009 Unspecified place in unspecified non-institutional (private) residence as the place of occurrence of the external cause; Z96.641 Presence of right artificial hip joint; Z95.1 Presence of aortocoronary bypass graft; Z88.0 Allergy status to penicillin; Z88.5 Allergy status to narcotic agent; Z79.899 Other long term (current) drug therapy; Z79.01 Long term (current) use of anticoagulants

== ENCOUNTER → 2018-04-03 | Outpatient (CLI) | payer OTHER | LOC: BFHH 09:17 | PROVIDERS: ATTEND Family Medicine | DX: I11.0 Hypertensive heart disease with heart failure (principal); I50.22 Chronic systolic (congestive) heart failure; I25.10 Atherosclerotic heart disease of native coronary artery without angina pectoris; I65.29 Occlusion and stenosis of unspecified carotid artery; I49.9 Cardiac arrhythmia, unspecified; Z79.01 Long term (current) use of anticoagulants ==

== ENCOUNTER → 2018-04-06 | Outpatient (CLI) | payer OTHER | LOC: GMAM 12:59 | PROVIDERS: ATTEND Family Medicine | DX: I49.9 Cardiac arrhythmia, unspecified (principal); I65.29 Occlusion and stenosis of unspecified carotid artery; Z79.01 Long term (current) use of anticoagulants ==

== ENCOUNTER 2018-04-14 00:02 | Emergency (ER) | payer OTHER ==
[2018-04-14] MEDS ORDERED: MORPHINE SULFATE INJ 10 MG/ML VIAL IV ONE (00:15)
[2018-04-14] MEDS ORDERED: KETOROLAC TROMETHAMINE INJ 30 MG/ML VIAL IV ONE (00:16)
[2018-04-14 00:25] VITALS: TEMP 98.2
--- NOTE | 2018-04-14 01:12 | CT ---
CLINICAL HISTORY: low back, rt hip and abd pain since fall 2w ago COMPARISON: None. TECHNIQUE: CT ABDOMEN PELVIS WITHOUT IV CONTRAST on 04/14/2018 12:15 AM CIVIL PREPAREDNESS COORDINATOR This exam was performed according to our departmental dose-optimization program, which includes automated exposure control, adjustment of the mA and/or kV according to patient size and/or use of iterative reconstruction technique. FINDINGS: The heart is enlarged. Abdomen: The liver is normal in appearance. There is no biliary dilatation. Cholecystectomy was performed. There is a small hiatal hernia. The pancreas and spleen are normal in appearance. Adrenal glands are normal. Kidneys are mildly atrophic. There is mild fullness of both renal collecting systems. Abdominal aorta is moderately calcified without aneurysm. There is no free air. There is no retroperitoneal adenopathy. Pelvis: There is no bowel obstruction. Urinary bladder is moderately distended. There is no free fluid. Hysterectomy was performed. Appendix is not clearly seen. Skeleton: There is minimal upper endplate deformity of L2 likely representing an acute Schmorl's node. Bones are diffusely osteopenic. Left hip arthroplasty was performed. IMPRESSION: Mild central upper endplate deformity of L2, likely representing an acute Schmorl's node. No acute inflammatory process. Electronically signed by: Abram Gardner MD 04/14/2018 1:11 AM CIVIL PREPAREDNESS COORDINATOR
--- NOTE | 2018-04-14 01:57 | ED.PDOC ---
History of Present Illness - General Chief Complaint: Lower Extremity Injury Stated Complaint: rt hip pain Time Seen by Provider: 04/14/18 00:14 Source: patient, family Exam Limitations: no limitations - History of Present Illness Initial Comments: the patient is 77-year-old female presenting to the emergency room secondary to right hip flank pain. The pain does also localized over the L2 lumbar vertebra. No falls in the last couple of days but she did have a fall 2 weeks ago. The pain has been slightly getting worse since that time in that area or possibly rather just becoming more focalized to that area. She did have numerous painful areas that have since resolved. She actually has a follow -up appointment with Dr. asencio this coming week. she did have x-rays performed here a few weeks ago when she had the fall. No fractures were found. No new loss of sensation or strength. No incontinence. Timing/Duration: unsure Severity: moderate Improving Factors: nothing Worsening Factors: movement Associated Symptoms: denies symptoms Allergies/Adverse Reactions: Allergies Codeine Allergy (Verified 01/17/17 04:55) Penicillins Allergy (Verified 01/17/17 04:55) Home Medications: Ambulatory Orders Docusate Sodium [Stool Softener] 100 mg PO BID 10/15/15 Furosemide 20 mg PO DAILY 10/15/15 Gabapentin 400 mg PO TID 10/15/15 Isosorbide Mononitrate [Imdur] 30 mg PO DAILY 10/15/15 Omeprazole 20 mg PO DAILY 10/15/15 Potassium Chloride [Klor-Con] 20 meq PO DAILY 10/15/15 Telmisartan 40 mg PO DAILY 10/15/15 Warfarin Sodium 4 mg PO DAILY 10/15/15 Rosuvastatin Calcium [Crestor] 10 mg PO DAILY 05/04/16 Cholecalciferol [Vitamin D] 1,000 unit PO DAILY 01/17/17 Sulfa/Trimeth 800/160 (Ds) Tab [Bactrim DS Tab] 1 ea PO BID #14 tab 01/17/17 Thyroid [[place] Thyroid] 15 mg PO DAILY 01/17/17 Review of Systems - Review of Systems Constitutional: States: no symptoms reported EENTM: States: no symptoms reported Respiratory: States: no symptoms reported Cardiology: States: no symptoms reported Gastrointestinal/Abdominal: States: no symptoms reported Genitourinary: States: no symptoms reported Musculoskeletal: States: back pain Skin: States: no symptoms reported Neurological: States: no symptoms reported Endocrine: States: no symptoms reported All other Systems: No Change from Baseline Past Medical History (General) - Patient Medical History Hx Seizures: No Hx Stroke: Yes Hx Dementia: No Hx Asthma: No Hx of COPD: No Hx Cardiac Disorders: Yes Hx Congestive Heart Failure: Yes Hx Pacemaker: No Hx Hypertension: Yes Hx Thyroid Disease: Yes Hx Diabetes: No Hx Gastroesophageal Reflux: No Hx Renal Disease: No Hx Cancer: No Hx of HIV: No Hx Hepatitis C: No Hx MRSA: No Surgical History: cholecystectomy, coronary bypass surgery, Hysterectomy, other - Vaccination History Hx Tetanus, Diphtheria Vaccination: Yes Hx Influenza Vaccination: No Hx Pneumococcal Vaccination: No - Social History Hx Tobacco Use: No Hx Chewing Tobacco Use: No Hx Alcohol Use: No Hx Substance Use: No Hx Substance Use Treatment: No Hx Depression: No Hx Physical Abuse: No Hx Emotional Abuse: No Hx Suspected Abuse: No - Female History Patient : No Family Medical History - Family History Mother Family History: Unknown Living Status: Hx Family Asthma: No Hx Family Stroke: Yes - dad Hx Cardiac Disease: Yes Hx Family Cancer: Yes - leukemia Physical Exam - Physical Exam General Appearance: Alert, Anxious, Obvious distress Eye Exam: bilateral normal Ears, Nose, Throat: hearing grossly normal, normal ENT inspection, normal pharynx Neck: full range of motion, supple Respiratory: lungs clear, normal breath sounds, no respiratory distress, no accessory muscle use Cardiovascular/Chest: normal peripheral pulses, regular rate, rhythm, no edema Peripheral Pulses: radial,right: 2+, radial,left: 2+, dorsalis pedis,right: 2+, dorsalis pedis,left: 2+ Gastrointestinal/Abdominal: non tender, soft Rectal Exam: deferred Back Exam: CVA tenderness (R), vertebral tenderness - over the L2 area with adjacent paraspinal muscle spasm primarily to the right Extremity: normal range of motion, non-tender, normal inspection, no pedal edema , normal capillary refill Neurologic: jet handler II-XII nml as tested, alert, normal mood/affect, oriented x 3 Skin Exam: normal color Comments: Vital Signs - 24 hr 04/14/18 04/14/18 00:15 01:31 Temperature 98.2 F Pulse Rate [ 90 90 left] Respiratory 18 18 Rate Blood Pressure 105/92 158/98 [left] O2 Sat by Pulse 94 L 95 Oximetry Progress - Progress Progress: 04/14/18 01:59 the patient's a 77-year-old female presenting to the emergency room secondary to low back pain radiating around the right side of her back and abdomen. This started and worsened since her fall a couple of weeks ago. CT scan seems to show a new L2 superior endplate deformity. There does not appear to be a significant loss of height. The patient will be written for Fioricet to take as needed to control pain. Additionally she will be written for low- dose Valium to take as a muscle relaxer if needed. A heat pad may prove beneficial. Topical anti-inflammatory patches may also prove beneficial. She needs to keep follow-up with her primary care doctor and Dr. Asencio next week. Ambulate carefully to prevent further falls. Keep well hydrated. Take MiraLAX 1-3 times weekly to prevent constipation due to decreased mobility and pain medications. ER warnings were given. - Results/Orders Results/Orders: CT scan of abdomen and pelvis without contrast shows what appears to be a new Schmorl's node at the superior endplate of L2. No evidence of any other fracture or acute pathology. Laboratory Tests 04/14/18 04/14/18 04/14/18 00:16 00:16 00:47 WBC 5.5 RBC 3.97 L Hgb 11.9 L Hct 36.4 MCV 91.8 MCH 29.9 MCHC 32.7 L RDW 15.2 H Plt Count 240 MPV 8.4 Absolute Neuts (auto) 3.30 Absolute Lymphs (auto) 1.60 Absolute Monos (auto) 0.30 Absolute Eos (auto) 0.20 Absolute Basos (auto) 0.10 Neutrophils % 60.6 Lymphocytes % 28.2 Monocytes % 6.0 Eosinophils % 4.0 Basophils % 1.2 PT 29.7 H* INR 3.00 H PTT (SP) 39.7 H Sodium 138 Potassium 4.5 Chloride 103 Carbon Dioxide 28 Anion Gap 11.5 L BUN 15 Creatinine 1.20 BUN/Creatinine Ratio 12.5 Random Glucose 91 Serum Osmolality 276.1 Calcium 9.3 Total Bilirubin 0.3 AST 21 ALT 13 Alkaline Phosphatase 121 Serum Total Protein 6.5 Albumin 3.3 Globulin 3.2 Albumin/Globulin Ratio 1.0 L urinalysis shows only a few red blood cells. Departure - Departure Clinical Impression: Schmorl's nodes of lumbar region Disposition: Discharge to Home or Self Care Condition: Fair Departure Forms: ED Discharge - Pt. Copy, Patient Portal Self Enrollment Instructions: Vertebral Compression Fracture (DC) Diet: regular diet Activity: other Referrals: CAMERON WILSON IV, BENDING ROLL OPERATOR [Primary Care Provider] - 1-5 Days Home Medications: Ambulatory Orders Docusate Sodium [Stool Softener] 100 mg PO BID 10/15/15 Furosemide 20 mg PO DAILY 10/15/15 Gabapentin 400 mg PO TID 10/15/15 Isosorbide Mononitrate [Imdur] 30 mg PO DAILY 10/15/15 Omeprazole 20 mg PO DAILY 10/15/15 Potassium Chloride [Klor-Con] 20 meq PO DAILY 10/15/15 Telmisartan 40 mg PO DAILY 10/15/15 Warfarin Sodium 4 mg PO DAILY 10/15/15 Rosuvastatin Calcium [Crestor] 10 mg PO DAILY 05/04/16 Cholecalciferol [Vitamin D] 1,000 unit PO DAILY 01/17/17 Sulfa/Trimeth 800/160 (Ds) Tab [Bactrim DS Tab] 1 ea PO BID #14 tab 01/17/17 Thyroid [[place] Thyroid] 15 mg PO DAILY 01/17/17 Additional Instructions: the patient's a 77-year-old female presenting to the emergency room secondary to low back pain radiating around the right side of her back and abdomen. This started and worsened since her fall a couple of weeks ago. CT scan seems to show a new L2 superior endplate deformity. There does not appear to be a significant loss of height. The patient will be written for Fioricet to take as needed to control pain. Additionally she will be written for low- dose Valium to take as a muscle relaxer if needed. A heat pad may prove beneficial. Topical anti-inflammatory patches may also prove beneficial. She needs to keep follow-up with her primary care doctor and Dr. Asencio next week. Ambulate carefully to prevent further falls. Keep well hydrated. Take MiraLAX 1-3 times weekly to prevent constipation due to decreased mobility and pain medications. ER warnings were given.
[2018-04-14 02:29] VITALS: BP 166/84; O2SAT 97
== END 2018-04-14 02:27 | disposition home or self-care (01) ==
LOC: ER 00:02
DX: M51.46 Schmorl's nodes, lumbar region (principal); M25.551 Pain in right hip; I50.9 Heart failure, unspecified; I11.0 Hypertensive heart disease with heart failure; E07.9 Disorder of thyroid, unspecified; Z86.73 Personal history of transient ischemic attack (TIA), and cerebral infarction without residual deficits; Z79.01 Long term (current) use of anticoagulants; Z79.899 Other long term (current) drug therapy; Z88.0 Allergy status to penicillin; Z88.5 Allergy status to narcotic agent
CPT/HCPCS: 74176; 80053; 81001; 85025; 85610; 85730; J1885; J2270

== ENCOUNTER → 2018-04-17 | Outpatient (CLI) | payer OTHER | LOC: GMAM 15:24 | PROVIDERS: ATTEND Family Medicine | DX: I49.9 Cardiac arrhythmia, unspecified (principal); I50.22 Chronic systolic (congestive) heart failure; I25.10 Atherosclerotic heart disease of native coronary artery without angina pectoris ==

== ENCOUNTER → 2018-04-20 | Outpatient (CLI) | payer OTHER | LOC: BFHH 13:20 | PROVIDERS: ATTEND Family Medicine | DX: Z79.01 Long term (current) use of anticoagulants (principal) ==

== ENCOUNTER → 2018-10-05 | Outpatient (CLI) | payer OTHER ==
--- NOTE | 2018-10-05 17:25 | US ---
EXAM DESCRIPTION: Venous,Lower Extremity LT: ULTRASOUND. CLINICAL HISTORY: LEG PAIN LEFT COMPARISON: None Available. TECHNIQUE: Maya-scale and doppler sonographic evaluation of the deep venous system of the left lower extremity. FINDINGS: Doppler evaluation shows normal color flow and normal phasicity and augmentation of the left common femoral vein, femoral vein, popliteal vein, greater saphenous vein, peroneal, and posterior tibial vein. The left lower extremity deep veins were completely compressible; normal occlusion with transducer pressure. Maya-scale survey showed no echogenic thrombus within these veins. IMPRESSION: 1. Duplex ultrasound evaluation of the left lower extremity deep venous system showing no evidence of thrombosis. Electronically signed by: Thad Mendez MD 10/05/2018 5:23 PM CDT
== END ==
LOC: RAD 11:46
PROVIDERS: ATTEND Family Medicine
DX: M79.605 Pain in left leg (principal); M79.604 Pain in right leg; I25.110 Atherosclerotic heart disease of native coronary artery with unstable angina pectoris

== ENCOUNTER → 2019-02-28 | Outpatient (CLI) | payer OTHER | LOC: GMAM 17:06 | PROVIDERS: ATTEND Family Medicine | DX: E03.9 Hypothyroidism, unspecified (principal); I10 Essential (primary) hypertension ==

== ENCOUNTER → 2019-03-05 | Outpatient (CLI) | payer OTHER | LOC: NC 14:56 | PROVIDERS: ATTEND Family Medicine | DX: I48.91 Unspecified atrial fibrillation (principal) ==

== ENCOUNTER → 2019-03-08 | Outpatient (CLI) | payer OTHER | LOC: NC 14:15 | PROVIDERS: ATTEND Family Medicine | DX: I48.91 Unspecified atrial fibrillation (principal); I50.9 Heart failure, unspecified ==

== ENCOUNTER → 2019-03-09 | Outpatient (CLI) | payer OTHER | LOC: LAB.O 12:40 | PROVIDERS: ATTEND Nurse Practitioner Family | DX: R50.9 Fever, unspecified (principal) ==

== ENCOUNTER → 2019-03-10 | Outpatient (CLI) | payer MEDICARE | LOC: NC 12:40 | PROVIDERS: ATTEND Family Medicine | DX: I48.91 Unspecified atrial fibrillation (principal) ==

== ENCOUNTER → 2019-03-21 | Outpatient (CLI) | payer MEDICARE | LOC: NC 12:46 | PROVIDERS: ATTEND Family Medicine | DX: I48.91 Unspecified atrial fibrillation (principal); I50.9 Heart failure, unspecified ==

== ENCOUNTER → 2019-03-22 | Outpatient (CLI) | payer MEDICARE | LOC: NC 14:33 | PROVIDERS: ATTEND Family Medicine | DX: I48.91 Unspecified atrial fibrillation (principal); I50.9 Heart failure, unspecified ==

== ENCOUNTER → 2019-03-23 | Outpatient (CLI) | payer MEDICARE | LOC: NC 11:01 | PROVIDERS: ATTEND Family Medicine | DX: I48.91 Unspecified atrial fibrillation (principal); I50.9 Heart failure, unspecified ==

== ENCOUNTER → 2019-03-29 | Outpatient (CLI) | payer MEDICARE | LOC: NC 15:10 | PROVIDERS: ATTEND Family Medicine | DX: I48.91 Unspecified atrial fibrillation (principal); E03.9 Hypothyroidism, unspecified ==

== ENCOUNTER → 2019-04-02 | Outpatient (CLI) | payer MEDICARE | LOC: NC 11:19 | PROVIDERS: ATTEND Family Medicine | DX: I48.91 Unspecified atrial fibrillation (principal) ==

== ENCOUNTER → 2019-04-10 | Outpatient (CLI) | payer MEDICARE | LOC: NC 11:25 | PROVIDERS: ATTEND Family Medicine | DX: I48.91 Unspecified atrial fibrillation (principal) ==

== ENCOUNTER 2019-04-23 18:50 | Observation (INO) | payer MEDICARE ==
--- NOTE | 2019-04-23 19:05 | ED.PDOC ---
History of Present Illness - General Time Seen by Provider: 04/23/19 18:58 Source: patient - History of Present Illness Initial Comments: 78 yo female with PMH of a-fib on Coumadin, HTN, hx of 3vCABG (2007), CHF, hx of CVA, s/p L , s/p L BOBBY, s/p ?R femoral stent who is bib EMS from home for cc of generalized weakness. Pt is poor historian. Reports not feeling well since this morning with poor appetite and PO intake. Also reports constant 4/10 t ightness in the center of her chest without radiation, largely unchanged all day, not exertional. States just [employer] she was standing at the [employer] and she suddenly felt dizzy and weak all over like she might pass out so she sat down. EMS reports vitals stable en route, no meds given. Pt complains that her INR was 5 this morning. Denies any bleeding, blood in stools, black/dark stools. Denies abd pain, n/v/d, cough, fevers, chills, dyspnea, sore throat. Allergies/Adverse Reactions: Allergies Codeine Allergy (Mild, Verified 04/24/19 01:44) rash Penicillins Allergy (Verified 04/24/19 01:45) rash Home Medications: Ambulatory Orders Docusate Sodium [Stool Softener] 100 mg PO BEDTIME 10/15/15 Isosorbide Mononitrate [Imdur] 30 mg PO DAILY 10/15/15 Potassium Chloride [Klor-Con] 20 meq PO DAILY 10/15/15 RX: Furosemide 20 mg PO DAILY 10/15/15 RX: Gabapentin 400 mg PO BID 10/15/15 RX: Omeprazole 10 mg PO DAILY 10/15/15 RX: Telmisartan 40 mg PO DAILY 10/15/15 RX: Warfarin Sodium 4 mg PO DAILY 10/15/15 Rosuvastatin Calcium [Crestor] 10 mg PO BEDTIME 05/04/16 Cholecalciferol [Vitamin D] 1,000 unit PO DAILY 01/17/17 RX: Levothyroxine Sodium 125 mcg PO DAILY 04/24/19 Review of Systems - Review of Systems Review of Systems: 04/23/19 19:05 as per HPI All other Systems: Reviewed and Negative Past Medical History (General) - Patient Medical History Hx Seizures: No Hx Stroke: Yes Hx Dementia: No Hx Asthma: No Hx of COPD: No Hx Cardiac Disorders: Yes Hx Congestive Heart Failure: Yes Hx Pacemaker: No Hx Hypertension: Yes Hx Thyroid Disease: Yes Hx Diabetes: No Hx Gastroesophageal Reflux: No Hx Renal Disease: No Hx Cancer: No Hx of HIV: No Hx Hepatitis C: No Hx MRSA: No - Vaccination History Hx Tetanus, Diphtheria Vaccination: Yes Hx Influenza Vaccination: No Hx Pneumococcal Vaccination: No - Social History Hx Tobacco Use: No Hx Chewing Tobacco Use: No Hx Alcohol Use: No Hx Substance Use: No Hx Substance Use Treatment: No Hx Depression: No Hx Physical Abuse: No Hx Emotional Abuse: No Hx Suspected Abuse: No - Female History Patient : No Family Medical History - Family History Father Living Status: Age at (years of age): 83 Mother Family History: Unknown Living Status: Hx Family Asthma: No Hx Family Stroke: Yes - dad Hx Cardiac Disease: Yes Hx Family Cancer: Yes - leukemia Physical Exam - Physical Exam General Appearance: Alert, Comfortable, No apparent distress Eye Exam: bilateral other - blind in right eye, chronic Ears, Nose, Throat: hearing grossly normal, normal ENT inspection, normal pharynx Neck: non-tender, full range of motion, supple, normal inspection Respiratory: lungs clear, normal breath sounds, no respiratory distress, other - mild anterior chest wall ttp Cardiovascular/Chest: normal peripheral pulses, regular rate, rhythm, other - trace BL LE pitting edema at ankles and feet Peripheral Pulses: radial,right: 2+, radial,left: 2+ Gastrointestinal/Abdominal: non tender, soft, no organomegaly Back Exam: normal inspection, no CVA tenderness Extremity: normal range of motion, non-tender, normal inspection, no pedal edema, no calf tenderness Neurologic: hatch tender II-XII nml as tested, no motor/sensory deficits, alert, normal mood/affect, oriented x 3 Skin Exam: normal color, warm/dry Progress - Progress Progress: 04/23/19 19:06 Generalized weakness, near-syncope -differential broad. No focal neuro deficits, doubt CVA/TIA. Consider dehydration, electrolyte derangement vs infectious - UTI/PNA/gastroenteritis/flu vs ACS vs CHF vs arrhythmia vs other. Given elevated INR, consider GI bleed, occult hemorrhage -cardiac work-up, labs, UA, EKG, CXR, flu test 04/24/19 00:23 -Trop neg x2 in ED, EKG unremarkable x2. Pt's CP resolved spontaneously and remained stable. Her INR is elevated to 6.6 but without active hemorrhage - discussed will need to hold Coumadin. Pt admitted for chest pain obs to [facility]. Hardik Álvarze MD Billing #[id number] - Results/Orders Results/Orders: 04/23/19 18:58 IV Care:Saline Lock per Protoc QSHIFT Sodium Chloride 0.9% (Flush) [Saline Flush Syringe] 3 ml IV PRN PRN 04/23/19 19:00 EKG STAT 04/23/19 20:34 EKG Assessment ONCE 04/23/19 20:45 EKG STAT 04/24/19 00:23 ED Intent to Admit Routine 04/24/19 09:00 Pulse Ox Daily Laboratory Results - last 24 hr 04/23/19 04/23/19 04/23/19 19:12 19:12 19:12 WBC 5.2 RBC 3.96 L Hgb 11.4 L Hct 35.2 L MCV 89.0 MCH 28.9 MCHC 32.5 L RDW 14.8 H Plt Count 247 MPV 8.9 Absolute Neuts (auto) 2.70 Absolute Lymphs (auto) 1.70 Absolute Monos (auto) 0.50 Absolute Eos (auto) 0.10 Absolute Basos (auto) 0.10 Neutrophils % 52.3 Lymphocytes % 31.9 Monocytes % 10.4 H Eosinophils % 2.8 Basophils % 2.6 H PT 63.4 H* INR 6.46 H* PTT (SP) 51.7 H* Sodium 140 Potassium 3.6 Chloride 105 Carbon Dioxide 28 Anion Gap 10.6 L BUN 10 Creatinine 0.85 BUN/Creatinine Ratio 11.8 Random Glucose 111 H Serum Osmolality 279.1 Calcium 9.2 Total Bilirubin 0.4 AST 19 ALT 10 Alkaline Phosphatase 92 Troponin I B-Natriuretic Peptide 265.0 H* Serum Total Protein 6.3 L Albumin 3.2 Globulin 3.1 Albumin/Globulin Ratio 1.0 L Urine Color Urine Appearance Urine pH Ur Specific [place] Urine Protein Urine Glucose (UA) Urine Ketones Urine Blood Urine Nitrite Urine Bilirubin Urine Urobilinogen Ur Leukocyte Esterase Urine RBC Urine WBC Ur Epithelial Cells Urine Bacteria 04/23/19 04/23/19 04/23/19 19:12 20:45 22:10 WBC RBC Hgb Hct MCV MCH MCHC RDW Plt Count MPV Absolute Neuts (auto) Absolute Lymphs (auto) Absolute Monos (auto) Absolute Eos (auto) Absolute Basos (auto) Neutrophils % Lymphocytes % Monocytes % Eosinophils % Basophils % PT INR PTT (SP) Sodium Potassium Chloride Carbon Dioxide Anion Gap BUN Creatinine BUN/Creatinine Ratio Random Glucose Serum Osmolality Calcium Total Bilirubin AST ALT Alkaline Phosphatase Troponin I < 0.02 < 0.02 B-Natriuretic Peptide Serum Total Protein Albumin Globulin Albumin/Globulin Ratio Urine Color Yellow Urine Appearance Clear Urine pH 7.0 Ur Specific [place] 1.010 Urine Protein Negative Urine Glucose (UA) Negative Urine Ketones Negative Urine Blood Trace-lysed H Urine Nitrite Negative Urine Bilirubin Negative Urine Urobilinogen 0.2 Ur Leukocyte Esterase Negative Urine RBC 0-1 Urine WBC 0-1 Ur Epithelial Cells 0-1 Urine Bacteria 0 - EKG/XRAY/CT EKG: Sinus - NSR, HR 65, no ST elevations or q waves, intervals & axis normal, compared to 03/27/18 EKG sinus ann-marie now resolved XRAY: chest - no acute processes Departure - Departure Clinical Impression: Chest pain, Near syncope, Elevated INR Time of Disposition: 00:23 Disposition: Admit Patient Condition: Fair Home Medications: Ambulatory Orders Docusate Sodium [Stool Softener] 100 mg PO BEDTIME 10/15/15 Isosorbide Mononitrate [Imdur] 30 mg PO DAILY 10/15/15 Potassium Chloride [Klor-Con] 20 meq PO DAILY 10/15/15 RX: Furosemide 20 mg PO DAILY 10/15/15 RX: Gabapentin 400 mg PO BID 10/15/15 RX: Omeprazole 10 mg PO DAILY 10/15/15 RX: Telmisartan 40 mg PO DAILY 10/15/15 RX: Warfarin Sodium 4 mg PO DAILY 10/15/15 Rosuvastatin Calcium [Crestor] 10 mg PO BEDTIME 05/04/16 Cholecalciferol [Vitamin D] 1,000 unit PO DAILY 01/17/17 RX: Levothyroxine Sodium 125 mcg PO DAILY 04/24/19 Decision To Admit - Decistion To Admit Decision to Admit Reason: Admit from ER Decision to Admit Date: 04/24/19 Decision to Admit Time: 00:23
--- NOTE | 2019-04-23 19:32 | RAD ---
EXAM DESCRIPTION: XR Chest,1 View CLINICAL HISTORY: chest tightness TECHNIQUE: Single frontal view of the chest is submitted. COMPARISON: 05/04/2016 FINDINGS: Heart: The cardiothoracic silhouette is enlarged, stable. Prior CABG. Lungs: Hyperinflation and coarsened interstitial markings. No focal consolidation. Mediastinum: Thoracic aortic atherosclerosis. Pleura: No appreciable effusion. No pneumothorax. Bones: Prior median sternotomy. Multilevel spondylosis. No acute fracture. Upper abdomen: Surgical clips project over the right upper quadrant. IMPRESSION: No acute disease. Electronically signed by: Denisa Zuleta MD 04/23/2019 7:30 PM [facility]
[2019-04-23] MEDS: SODIUM CHLORIDE 0.9% (FLUSH) 10 ML SYG IV PRN (21:18)
[2019-04-23] MEDS ORDERED: NITROGLYCERIN 0.4 MG 25 EA TAB SL ONE (23:07)
--- NOTE | 2019-04-24 00:47 | HP ---
SUPERVISING PHYSICIAN: Karlos Hernandez MD CHIEF COMPLAINT: Near syncopal episode. HISTORY OF PRESENT ILLNESS: Ms. Garcia is a 78-year-old female patient who presented to the Emergency Department and has a history of atrial fibrillation on Coumadin along with hypertension, congestive heart failure and previous CVA complaining of generalized weakness. She presented to the Emergency Room via EMS. The patient is a very poor historian. She denied any abdominal pain, nausea, vomiting, chills or diarrhea. She endorses she has not been feeling well, having a poor appetite and having some dizziness that she reported that prior to arrival, she was standing at the [facility] and just suddenly felt dizzy all over, but did not actually pass out and was able to sit down to a sitting position without falling. Initially, her labs in the Emergency Room showed she had an INR of 6.46. She is on chronic Coumadin. Hemoglobin was 11.4, hematocrit 35.2. Her vital signs showed she was hemodynamically stable with temperature 97.8, pulse 80, blood pressure 170/77, saturation 99% on room air. Cardiac workup showed negative troponins times 2. Otherwise, on chemistry she just had a slightly elevated BNP of 265. Urinalysis was within normal limits except for just a trace amount of blood. The patient is going to be placed in observation for near syncopal episode and concerns for possible complications due to coagulopathy secondary to elevated INR on Coumadin therapy. She was placed in observation in stable condition. PAST MEDICAL HISTORY: 1. Chronic atrial fibrillation on Coumadin. 2. Congestive heart failure of uncertain etiology and type with no echocardiogram available at time of admission. 3. Hypertension. 4. Hypothyroidism. 5. History of cerebrovascular accident with no report residual side effects. 6. History of carotid artery stenosis status post left carotid endarterectomy. PAST SURGICAL HISTORY: 1. Left carotid endarterectomy. 2. Left total hip. 3. Right femoral stent placement. 4. Three vessel coronary artery bypass graft in 2007. HOME MEDICATIONS: 1. Crestor. 2. Stool softener. 3. Vitamin D3. 4. Gabapentin 400 mg b.i.d. 5. Omeprazole 10 mg daily. 6. Isosorbide 30 mg daily. 7. Potassium chloride 20 mEq daily. 8. Telmisartan 40 mg daily. 9. Levothyroxine 125 mcg daily. 10. Warfarin 4 mg daily. 11. Lasix 20 mg daily. ALLERGIES: CODEINE, PENICILLINS. FAMILY HISTORY: Noncontributory. SOCIAL HISTORY: The patient is retired and lives in [place], [place]. She is , but lives with her daughter. She denies any tobacco abuse and does not use illicit drugs or alcohol. PHYSICAL EXAMINATION: VITAL SIGNS: Temperature 97.9. Pulse 80. Blood pressure 170/77. Respirations 18. Saturation 98% on room air. GENERAL: The patient is resting comfortably and appears to be in no acute distress. She is alert. HEENT: She is blind in the right eye chronically. Tympanic membranes clear bilaterally. Oropharynx is pink, moist without any lesions. NECK: Supple, nontender with full range of motion. No jugular venous distention noted. RESPIRATORY: Lungs clear to auscultation without any rhonchi, wheezes or rales. She had a little bit of tenderness on palpation of the anterior chest wall. CARDIOVASCULAR: Regular rate and rhythm without any appreciable murmurs, gallops, or rubs. ABDOMEN: Soft, nontender. Positive bowel sounds. EXTREMITIES: There is a trace of bilateral lower extremity edema, but no cyanosis or clubbing. NEUROLOGIC: The patient is alert and oriented times three. Cranial nerves II- XII are grossly intact. Facial features are symmetrical. Extraocular movements are within normal limits. There is no nystagmus noted. SKIN: Pale, warm and drink. EKG: Normal sinus rhythm at [address] elevation or T-wave inversion with no significant changes compared to previous EKG on 03/27/18 except for some sinus bradycardia on that exam. LABORATORY: CBC showed white count 5,200, hemoglobin 11.4, hematocrit 35.2, platelet count 247,000. Differential without a left shift. Coagulation studies showed INR 6.46, PTT 51.7. Chemistry showed normal electrolytes with BUN 10, creatinine 0.5, troponin less than 0.02. She did have a slightly elevated BNP at 265. Urinalysis showed a trace of lysed blood. Influenza A and B by PCR was negative. RADIOLOGY: Chest x-ray prior to admission per radiologic interpretation showed no acute disease. CTA of the neck, ultrasound, bilateral carotid Doppler studies and a non-contrast CT of the head were pending at time of admission. ASSESSMENT: 1. Near syncopal episode, uncertain etiology, pending further workup. 2. Coagulopathy secondary to chronic Coumadin therapy with no acute signs of bleeding. 3. Generalized weakness, uncertain etiology. 4. History of atrial fibrillation with a sinus rhythm noted on monitor on chronic Coumadin therapy. 5. History of chronic hypertension. 6. Congestive heart failure, uncertain etiology with no echocardiogram available for review with slightly elevated BNP on admission with no signs of exacerbation. 7. History of previous cerebrovascular accident with no mention residual effects. PLAN: Ms. Garcia is going to be placed in observation for continued neurologic monitoring and cardiac telemetry. We will follow her INR and make sure it is trending towards therapeutic levels, but at this point she is not showing any bleeding, so we will hold off on any vitamin K. We will review her medications and update those as needed and will resume as appropriate to care. We will give fluids as needed. She will be on DVT prophylaxis with SCDs and hold Coumadin. We will wait on carotid Doppler studies as well as CTA of the neck and head to further rule out any neurological deficits resulting in syncopal episode. I would anticipate 1 to 2 days length of stay with discharging probably later tomorrow if she shows stable hemoglobin and hematocrit and trending of her INR to therapeutic level. Until then, we will continue to monitor and treat as needed. #[id number] [facility]
[2019-04-24] MEDS ORDERED: SODIUM CHLORIDE 0.9% (FLUSH) 10 ML SYG IV PRN (02:58)
[2019-04-24] MEDS ORDERED: ONDANSETRON INJ 4 MG/2 ML VIAL IV PRN (02:58)
[2019-04-24] MEDS ORDERED: ACETAMINOPHEN 325 MG TAB PO PRN (02:58)
[2019-04-24] MEDS ORDERED: IV SET AND CAP CHANGE INJ INJ SCH (03:00)
--- NOTE | 2019-04-24 07:53 | CT ---
EXAM DESCRIPTION: Head CLINICAL HISTORY: 78 years, Female, syncope COMPARISON: March 27, 2018 TECHNIQUE: Head CT was performed without IV contrast. This exam was performed according to our departmental dose-optimization program, which includes automated exposure control, adjustment of the mA and/or kV according to patient size and/or use of iterative reconstruction technique. FINDINGS: No acute intracranial hemorrhage. No midline shift. The ventricles are not dilated. Postoperative changes in the left frontotemporal region including prior craniotomy with underlying encephalomalacia and a single metallic surgical clip, stable. No posterior fossa lesion. Chronic ischemic changes in the periventricular white matter without acute cortical infarct or intracranial mass. Mucoperiosteal thickening and/or fluid in the left frontal sinus, slightly worse from the prior exam. The orbits are unremarkable. No acute calvarial fracture. IMPRESSION: Postoperative and chronic ischemic microvascular changes without acute intracranial abnormality. Left frontal sinusitis, worse from March,. Electronically signed by: Guillermo Kang MD 04/24/2019 7:52 AM [employer]
[2019-04-24] MEDS ORDERED: POTASSIUM CHLORIDE 20 MEQ TAB ONE (09:28)
[2019-04-24] MEDS ORDERED: LEVOTHYROXINE SODIUM 0.075 MG TAB ONE (09:28)
[2019-04-24] MEDS ORDERED: LEVOTHYROXINE SODIUM 0.025 MG TAB ONE (09:29)
[2019-04-24] MEDS: POTASSIUM CHLORIDE 20 MEQ TAB PO SCH (10:36)
[2019-04-24] MEDS: ISOSORBIDE MONONITRATE (IMDUR) 30 MG TAB PO SCH (10:36)
[2019-04-24] MEDS: GABAPENTIN 400 MG CAP PO SCH ×2 (10:36→20:32)
[2019-04-24] MEDS: LEVOTHYROXINE SODIUM 0.025 MG TAB PO SCH (10:36)
[2019-04-24] MEDS: LEVOTHYROXINE SODIUM 0.1 MG TAB PO SCH (10:40)
[2019-04-24] MEDS: OMEPRAZOLE CAP 20 MG CAP PO SCH (10:40)
[2019-04-24] MEDS: TELMISARTAN 40 MG PO SCH (10:41)
--- NOTE | 2019-04-24 12:24 | CT ---
EXAM DESCRIPTION: CTA Neck CLINICAL HISTORY: 78 years Female, syncope COMPARISON: None. TECHNIQUE: Helical CT images are acquired from aortic arch to skull base following intravenous contrast. Multi-planar reformations provided. This examination was performed according to a CT angiographic (CTA) protocol with 3D post-processing. This involves 3D reconstructions, MIPS, volume rendered images and/or shaded surface rendering. This exam was performed according to our departmental dose-optimization program, which includes automated exposure control, adjustment of the mA and/or kV according to patient size and/or use of iterative reconstruction technique. FINDINGS: Cervical-cerebral arch: Conventional branching of the aortic arch. Mild-moderate calcified atherosclerosis within the aortic arch with less than 50% stenosis at the origin of the left subclavian artery. Right carotid system: Mild-moderate mixed soft tissue and calcified plaque at the carotid bifurcation. The estimated internal carotid stenosis by NASCET criteria is 0%. Left carotid system: Moderate atherosclerosis in the proximal left internal carotid artery with absence of opacification of the left internal carotid artery, with the exception of mild opacification within the supraclinoid segment of the left internal carotid artery. The estimated internal carotid stenosis by NASCET criteria is 0%. Vertebral arteries: Moderate atherosclerosis of the origin of the right vertebral artery with probably 50-70% stenosis. Moderate atherosclerosis at the origin of the left vertebral artery with probably-50% stenosis. Musculoskeletal: No acute fracture or aggressive appearing osseous lesion. Soft tissues unremarkable. Other findings: 6 mm ovoid soft tissue nodule in the superficial right parotid gland on image 75. IMPRESSION: 1. Absence of contrast within the left internal carotid artery, except for mild opacification within the supraclinoid segment of the left ICA. This may be secondary to occlusion versus very slow flow through the left internal carotid artery. Correlate with Doppler findings. 2. Atherosclerosis and mild to moderate stenosis within the remaining CTA of the neck as above. COMMENT: All internal carotid artery stenoses are calculated based on NASCET criteria. Electronically signed by: Chad Villagomez MD 04/24/2019 12:23 PM [employer]
--- NOTE | 2019-04-24 13:06 | US ---
EXAM DESCRIPTION: Carotid Duplex: ULTRASOUND. CLINICAL HISTORY: 78 years Female syncope. History of right carotid endarterectomy or stent placement. COMPARISON: CTA neck scheduled today. CT scan of the head earlier today. TECHNIQUE: Transcutaneous scanning utilizing bonds-scale and Doppler modes to evaluate the bilateral carotid systems and vertebral arteries. Percentage of diameter of stenosis or no stenosis recorded will be based upon NASCET criteria. FINDINGS: Peak systolic/end diastolic (CM-Sec) CCA Right 110/23 Left 71/0. ICA Right proximal 121/37, mid 109/27. Left proximal 92/0, Distal 87/0. Rotor Balancer cannot determine if this vessel was left ICA or left ECA. Vertebral Right 39/11 Left 55/13. ECA (PS Only) Right 133 left not well seen.. ICA/CCA peak systolic ratio: Right 1.1 Left 1.3 ICA/CCA end diastolic ratio: Right 1.6 Left n/a Vertebral arteries: antegrade flow. Atherosclerotic calcification. Comments: Spectral broadening right distal CCA and ICA along with color turbulent flow in the right CCA bulb. Right distal CCA: Area stenosis 39% and diameter stenosis 27%. Right Mid bulb and right CCA area and diameter stenosis 44%. Left mid CCA area stenosis 44% and diameter stenosis 42%. Left CCA mid bulb area stenosis 53% diameter stenosis 39%. Left proximal ICA area stenosis 51% diameter stenosis 57%. Rotor Balancer had difficulty discerning between the left ICA in the left ECA. IMPRESSION: 1. Doppler evaluation of the bilateral carotid systems and vertebral arteries shows no hemodynamically significant stenoses. Spectral broadening and turbulent color flow in the bilateral ICAs. Grayscale ultrasound showed 57% diameter stenosis in the proximal left ICA. However, technologist had difficulty discerning between left ICA and left ECA. 0 diastolic velocity bilaterally could represent a shunt or aortic insufficiency. Correlation with neck CTA of carotid and vertebral arteries with IV contrast recommended. 2. Significant amount of plaque seen in the carotid arteries bilaterally. Bilateral vertebral arteries showed antegrade-cephalad flow. Electronically signed by: Thad Mendez MD 04/24/2019 1:04 PM [employer]
[2019-04-24] MEDS: SODIUM CHLORIDE 0.9% (FLUSH) 10 ML SYG IV PRN (20:32)
[2019-04-24] MEDS ORDERED: DOCUSATE SODIUM 100 MG CAP PO SCH (21:00)
[2019-04-24] MEDS ORDERED: ATORVASTATIN 20 MG TAB PO SCH (21:00)
[2019-04-25] MEDS: LEVOTHYROXINE SODIUM 0.025 MG TAB PO SCH (06:07)
[2019-04-25] MEDS: OMEPRAZOLE CAP 20 MG CAP PO SCH (06:07)
[2019-04-25] MEDS: LEVOTHYROXINE SODIUM 0.1 MG TAB PO SCH (06:07)
[2019-04-25] MEDS: GABAPENTIN 400 MG CAP PO SCH (08:26)
[2019-04-25] MEDS: POTASSIUM CHLORIDE 20 MEQ TAB PO SCH (08:26)
[2019-04-25] MEDS: ISOSORBIDE MONONITRATE (IMDUR) 30 MG TAB PO SCH (08:26)
[2019-04-25] MEDS: TELMISARTAN 40 MG PO SCH (08:26)
[2019-04-25 08:48] VITALS: BP 110/65; TEMP 98.5; O2SAT 95
[2019-04-25] MEDS ORDERED: ASPIRIN (CHEWABLE) 81 MG TAB PO SCH (09:00)
[2019-04-25] MEDS ORDERED: methylPREDNISolone SODIUM SUC 125 MG/2 ML VIAL IV ONE (12:02)
--- NOTE | 2019-04-25 13:41 | DS ---
SUPERVISING PHYSICIAN: Karlos Hernandez MD DISCHARGE DIAGNOSIS: 1. Near syncopal episode, uncertain etiology, but most likely due to carotid stenosis. 2. Supratherapeutic INR level. She is on chronic Coumadin therapy. There are no acute signs of bleeding. Coumadin is being held at this time. 3. Generalized weakness, uncertain etiology. 4. History of atrial fibrillation with a sinus rhythm noted on front desk monitor and she is on Coumadin therapy. 5. History of chronic hypertension on medication. 6. Congestive heart failure. 7. History of previous cerebrovascular accident with no mention residual effects. HISTORY OF PRESENT ILLNESS: This is a 78-year-old female patient who presented to the Emergency Department and has a history of atrial fibrillation on Coumadin along with hypertension, congestive heart failure and previous CVA. She was complaining of generalized weakness. She denied any abdominal pain, nausea, vomiting, chills or diarrhea. She just had not been feeling well. She had a poor appetite and some dizziness. Prior to arrival, she was standing by her coach wirer and just suddenly felt dizzy all over, but did not actually pass out and was able to sit down to a sitting position without falling. Initially, her labs in the Emergency Room showed she had an INR of 6.46. She is on chronic Coumadin. Hemoglobin was 11.4, hematocrit 35.2. Her vital signs showed she was hemodynamically stable with temperature 97.8, pulse 80, blood pressure 170/77, O2 saturation 99% on room air. Cardiac workup showed negative troponins times 2. She did have a slightly elevated BNP of 265. Urinalysis was within normal limits except for just a trace amount of blood. The patient was going placed in observation for near syncopal episode and concerns for coagulopathy secondary to elevated INR. HOSPITAL COURSE: She was placed in observation for neuro checks as well as cardiac telemetry. Her Coumadin was held and her INR was followed. There was no evidence of any bleeding. Her home medications were restarted. Carotid Doppler study was done as well as CT of the neck. She has had no further incidents of dizziness. She has walked around in her room and in the hallways without any difficulty. Aspirin 162 mg was added to her medication regime. She is already on statin treatment with Lipitor. She will be discharged home today in stable condition with close followup with Dr. Lobo, her primary care physician. LABORATORY: CBC was unremarkable upon admission except for hemoglobin 11.4 and hematocrit 35.2. Her followup hemoglobin was 10.7 and hematocrit 32.6. Her initial INR was 6.46, today is 4.17. Her Coumadin continued to be held. Chemistry was basically within normal limits with the exception of her BNP was elevated at 265. RADIOLOGY: Chest x-ray showed no acute disease. Carotid ultrasound shows 1) Doppler evaluation of the bilateral carotid system and vertebral arteries shows no hemodynamically significant stenosis. Spectral broadening and turbulent color flow in bilateral RCA. Pritchett scale ultrasound showed 57% diameter stenosis in the proximal left ICA. However, technologist has difficulty discerning between left ICA and left ECA. Zero diastolic velocity bilaterally could represent a shunt or aortic insufficiency. Correlate with neck CT of carotid and vertebral arteries with IV contrast recommended. 2) Significant amount of plaque seen in the carotid arteries bilaterally. Bilateral vertebral arteries show antegrade cephalad flow. Her neck CTA shows 1) Absence of contrast within the left internal carotid artery except for mild opacification within the supraclinoid segment of the left ICA. This may be secondary to occlusion versus very slow flow through the left internal carotid artery. Correlate with Doppler findings. 2) Atherosclerosis and mild to moderate stenosis within the remaining CT of the neck. Her head CT showed postoperative and chronic ischemic microvascular changes without acute intracranial abnormality. Left frontal sinus worse from March of 2018. DISCHARGE PLAN: The patient will be discharged home in stable condition. She has [facility] and they have been called. They will call [facility] and increase her services for the next week or so. She will also have an INR drawn by Meagan on Tuesday and it will be called to Dr. Lobo's office for further orders. The patient has been instructed not to take her Coumadin until further instructions from Dr. Lobo's office. She is also to continue her previous diet, increase her activity as tolerated and continue on her home medications plus 162 mg of aspirin daily. She is to followup with Dr. Lobo on 04/30/19 at 11:15. She will need an INR at that time as well and it would be helpful to go over her CTA of the neck and her carotid ultrasound to help with decisions on further followup. She has had no syncopal episodes since she has been in the hospital, but she is to return to the hospital or followup with Dr. Lobo's office for any problems or complications. DISCHARGE MEDICATIONS: 1. Isosorbide. 2. Telmisartan. 3. Furosemide. 4. Potassium chloride. 5. Omeprazole. 6. Gabapentin. 7. Docusate sodium 8. Crestor. 9. Vitamin D. 10. Levothyroxine. 11. Aspirin 162 mg. #[id number] [facility]
[2019-04-26] MEDS ORDERED: FUROSEMIDE INJ 40 MG/4 ML VIAL IV ONE (12:02)
== END 2019-04-25 11:00 | disposition home health service (06) ==
LOC: ER 18:50 → MS 04-24 00:45
PROVIDERS: ADMIT Nurse Practitioner Family; ATTEND Nurse Practitioner Acute Care
DX: R55 Syncope and collapse (principal); I65.23 Occlusion and stenosis of bilateral carotid arteries; R79.1 Abnormal coagulation profile; R53.1 Weakness; I48.20 Chronic atrial fibrillation, unspecified; I11.0 Hypertensive heart disease with heart failure; I50.9 Heart failure, unspecified; R07.9 Chest pain, unspecified; R00.1 Bradycardia, unspecified; E03.9 Hypothyroidism, unspecified; I67.2 Cerebral atherosclerosis; I70.0 Atherosclerosis of aorta; J32.1 Chronic frontal sinusitis; Z86.73 Personal history of transient ischemic attack (TIA), and cerebral infarction without residual deficits; Z79.01 Long term (current) use of anticoagulants; Z79.890 Hormone replacement therapy; Z79.899 Other long term (current) drug therapy; Z88.0 Allergy status to penicillin; Z88.6 Allergy status to analgesic agent; Z95.1 Presence of aortocoronary bypass graft; Z96.642 Presence of left artificial hip joint; Z95.828 Presence of other vascular implants and grafts; Z82.3 Family history of stroke; Z82.49 Family history of ischemic heart disease and other diseases of the circulatory system; Z80.6 Family history of leukemia

== ENCOUNTER → 2019-04-23 | Outpatient (CLI) | payer MEDICARE | LOC: NC 15:30 | PROVIDERS: ATTEND Family Medicine | DX: E03.9 Hypothyroidism, unspecified (principal); I69.318 Other symptoms and signs involving cognitive functions following cerebral infarction; Z95.1 Presence of aortocoronary bypass graft; Z79.01 Long term (current) use of anticoagulants ==

== ENCOUNTER 2019-04-27 13:54 | Emergency (ER) | payer MEDICARE ==
--- NOTE | 2019-04-27 16:01 | ED.PDOC ---
History of Present Illness - General Chief Complaint: General Stated Complaint: Elevated INR Time Seen by Provider: 04/27/19 14:17 Source: patient, RN notes reviewed, Vital Signs reviewed, family - Daughter Exam Limitations: no limitations - History of Present Illness Initial Comments: Patient was seen a few days ago and told her INR was elevated and was told to discontinue her Coumadin. Patient received a call from her doctor's office telling her her INR level was 11 and she needed to come to the emergency department immediately. Patient has no complaints. Timing/Duration: unsure Severity: moderate Improving Factors: nothing Worsening Factors: nothing Associated Symptoms: denies symptoms Allergies/Adverse Reactions: Allergies Codeine Allergy (Mild, Verified 04/27/19 15:34) rash Penicillins Allergy (Verified 04/27/19 15:34) rash Home Medications: Ambulatory Orders Docusate Sodium [Stool Softener] 100 mg PO BEDTIME 10/15/15 Furosemide 20 mg PO DAILY 10/15/15 Gabapentin 400 mg PO BID 10/15/15 Isosorbide Mononitrate [Imdur] 30 mg PO DAILY 10/15/15 Omeprazole 10 mg PO DAILY 10/15/15 Potassium Chloride [Klor-Con] 20 meq PO DAILY 10/15/15 Telmisartan 40 mg PO DAILY 10/15/15 Rosuvastatin Calcium [Crestor] 10 mg PO BEDTIME 05/04/16 Cholecalciferol [Vitamin D] 1,000 unit PO DAILY 01/17/17 Levothyroxine Sodium 125 mcg PO DAILY 04/24/19 Aspirin [Baby Aspirin] 162 mg PO DAILY chwtab 04/25/19 Review of Systems - Review of Systems Constitutional: States: no symptoms reported, see HPI EENTM: States: no symptoms reported Respiratory: States: no symptoms reported Cardiology: States: no symptoms reported Gastrointestinal/Abdominal: States: no symptoms reported Genitourinary: States: no symptoms reported Musculoskeletal: States: no symptoms reported Skin: States: no symptoms reported Neurological: States: no symptoms reported Endocrine: States: no symptoms reported Hematologic/Lymphatic: States: see HPI, easy bleeding, easy bruising All other Systems: Reviewed and Negative Past Medical History (General) - Patient Medical History Hx Seizures: No Hx Stroke: Yes Hx Dementia: No Hx Asthma: No Hx of COPD: No Hx Cardiac Disorders: Yes Hx Congestive Heart Failure: Yes Hx Pacemaker: No Hx Hypertension: Yes Hx Thyroid Disease: Yes Hx Diabetes: No Hx Gastroesophageal Reflux: No Hx Renal Disease: No Hx Cancer: No Hx of HIV: No Hx Hepatitis C: No Hx MRSA: No Surgical History: cholecystectomy, coronary bypass surgery, Hysterectomy - Vaccination History Hx Tetanus, Diphtheria Vaccination: Yes Hx Influenza Vaccination: No Hx Pneumococcal Vaccination: Yes - Social History Hx Tobacco Use: No Hx Chewing Tobacco Use: No Hx Alcohol Use: No Hx Substance Use: No Hx Substance Use Treatment: No Hx Depression: No Hx Physical Abuse: No Hx Emotional Abuse: No Hx Suspected Abuse: No - Female History Patient is a Female of Child Bearing Age (10 -59 yrs old): No Patient : No Family Medical History - Family History Mother Family History: Unknown Living Status: Cause of : cancer mouth Hx Family Asthma: No Hx Family Stroke: Yes - dad Hx Cardiac Disease: Yes Hx Family Cancer: Yes - leukemia Father Living Status: Age at (years of age): 83 Physical Exam - Physical Exam General Appearance: Alert, Comfortable, Well Developed, Well Groomed, Well Hydrated, Well Nourished Eye Exam: bilateral normal Ears, Nose, Throat: hearing grossly normal, normal ENT inspection, normal pharynx Neck: non-tender, full range of motion, supple, normal inspection Respiratory: chest non-tender, lungs clear, normal breath sounds, no respiratory distress, no accessory muscle use Cardiovascular/Chest: normal peripheral pulses, regular rate, rhythm, no edema, no gallop, no JVD, no murmur Peripheral Pulses: radial,right: 2+, radial,left: 2+ Gastrointestinal/Abdominal: normal bowel sounds, non tender, soft, no organomegaly, no pulsatile mass Back Exam: normal inspection, no CVA tenderness, no vertebral tenderness Extremity: normal range of motion, non-tender, normal inspection, no pedal edema, no calf tenderness 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 04/27/19 1603 hrs. Repeat labs show the INR is 1.2. I have recommended to the daughter and the patient that the patient restart her Coumadin. She has a follow-up appointment already scheduled on Tuesday the . Plan on discharge home with follow-up with her PCP on Tuesday. I have discussed this plan of care with patient and her daughter and they voiced understanding and agreement with the plan of care. Eliel Dominguez M.D. - Results/Orders Results/Orders: Laboratory Results - last 24 hr 04/27/19 04/27/19 14:27 14:27 WBC 4.9 RBC 4.13 L Hgb 11.9 L Hct 36.8 MCV 89.1 MCH 28.9 MCHC 32.4 L RDW 14.9 H Plt Count 236 MPV 9.1 Absolute Neuts (auto) 3.20 Absolute Lymphs (auto) 1.10 Absolute Monos (auto) 0.40 Absolute Eos (auto) 0.10 Absolute Basos (auto) 0.10 Neutrophils % 65.8 Lymphocytes % 22.4 Monocytes % 7.9 Eosinophils % 2.6 Basophils % 1.3 PT 12.0 H INR 1.20 H PTT (SP) 28.4 Departure - Departure Clinical Impression: Idiosyncratic reaction to medication after proper dose Qualifiers: Encounter type: initial encounter Qualified Code(s): T50.905A - Adverse effect of unspecified drugs, medicaments and biological substances, initial encounter Time of Disposition: 16:05 Disposition: Discharge to Home or Self Care Condition: Good Departure Forms: ED Discharge - Pt. Copy, Patient Portal Self Enrollment Instructions: What to Do When Your INR Is Too High , Warfarin Referrals: Rahul Lobo MD [Primary Care Provider] - 1-2 Weeks Home Medications: Ambulatory Orders Docusate Sodium [Stool Softener] 100 mg PO BEDTIME 10/15/15 Furosemide 20 mg PO DAILY 10/15/15 Gabapentin 400 mg PO BID 10/15/15 Isosorbide Mononitrate [Imdur] 30 mg PO DAILY 10/15/15 Omeprazole 10 mg PO DAILY 10/15/15 Potassium Chloride [Klor-Con] 20 meq PO DAILY 10/15/15 Telmisartan 40 mg PO DAILY 10/15/15 Rosuvastatin Calcium [Crestor] 10 mg PO BEDTIME 05/04/16 Cholecalciferol [Vitamin D] 1,000 unit PO DAILY 01/17/17 Levothyroxine Sodium 125 mcg PO DAILY 04/24/19 Aspirin [Baby Aspirin] 162 mg PO DAILY chwtab 04/25/19 Additional Instructions: Restart your Coumadin at 4 mg/day. Follow-up with PCP in 4 to 5 days for repeat blood work.
[2019-04-27 16:54] VITALS: BP 177/90; TEMP 99.4; O2SAT 99
== END 2019-04-27 16:30 | disposition home or self-care (01) ==
LOC: ER 13:54
DX: R79.1 Abnormal coagulation profile (principal); T45.515A Adverse effect of anticoagulants, initial encounter; I50.9 Heart failure, unspecified; I10 Essential (primary) hypertension; E07.9 Disorder of thyroid, unspecified; Z86.73 Personal history of transient ischemic attack (TIA), and cerebral infarction without residual deficits; Z95.1 Presence of aortocoronary bypass graft; Z79.01 Long term (current) use of anticoagulants; Z79.899 Other long term (current) drug therapy

== ENCOUNTER → 2019-04-27 | Outpatient (CLI) | payer MEDICARE | LOC: NC 08:24 | PROVIDERS: ATTEND Family Medicine | DX: I25.10 Atherosclerotic heart disease of native coronary artery without angina pectoris (principal); Z95.1 Presence of aortocoronary bypass graft ==

== ENCOUNTER → 2019-05-03 | Outpatient (CLI) | payer MEDICARE | LOC: NC 14:44 | PROVIDERS: ATTEND Family Medicine | DX: I25.10 Atherosclerotic heart disease of native coronary artery without angina pectoris (principal); Z95.1 Presence of aortocoronary bypass graft ==

== ENCOUNTER → 2019-06-05 | Outpatient (CLI) | payer MEDICARE | LOC: NC 13:15 | PROVIDERS: ATTEND Family Medicine | DX: E03.9 Hypothyroidism, unspecified (principal) ==

== ENCOUNTER 2019-09-18 12:12 | Emergency (ER) | payer MEDICARE ==
[2019-09-18] MEDS ORDERED: fentaNYL CITRATE INJ 50 MCG/ML 2 ML AMP IV ONE ×2 (12:45→13:46)
--- NOTE | 2019-09-18 13:19 | CT ---
EXAM DESCRIPTION: Head CLINICAL HISTORY: fall with MURPHY. Pt on Eliquis COMPARISON: CT head 04/24/2019. TECHNIQUE: Non contrast cranial CT with multiplanar reconstructions. FINDINGS: Changes of left frontotemporal craniotomy with chronic left inferior frontal lobe encephalomalacia are unchanged. No acute intracranial hemorrhage, transcortical infarct, mass or mass effect. No intra or extra-axial fluid collection. No focal edema or midline shift. The ventricle and sulci are normal for age. No hydrocephalus. The bonds-white matter differentiation is intact. No acute calvarial fracture. The visualized paranasal sinuses and the mastoids are clear. IMPRESSION: 1. No acute intracranial abnormality. 2. Stable left frontotemporal craniotomy and chronic left inferior frontal lobe encephalomalacia. This exam was performed according to our departmental dose-optimization program, which includes automated exposure control, adjustment of the mA and/or kV according to patient size and/or use of iterative reconstruction technique. Electronically signed by: Matias Bourgeois DO 09/18/2019 1:18 PM CDT
--- NOTE | 2019-09-18 13:26 | CT ---
EXAM DESCRIPTION: Cervical Spine CLINICAL HISTORY: fall with pain COMPARISON: CTA neck 04/24/2019. TECHNIQUE: Cervical CT is performed with thin-section axial imaging. MPRs are created and reviewed as well. This exam was performed according to our departmental dose-optimization program, which includes automated exposure control, adjustment of the mA and/or kV according to patient size and/or use of iterative reconstruction technique. FINDINGS: Diffuse osteopenia partially limits evaluation. Mild levocurvature of the cervical spine can be positional. The cervical spinal alignment is otherwise intact without significant listhesis. The vertebral body heights are relatively maintained. No displaced fracture or significantly appearing subluxation is seen. The craniocervical junction is intact. The atlantodental dental interval is intact. Mild to moderate multilevel cervical spine with intervertebral disc height loss, endplate sclerosis and small marginal osteophyte formation most pronounced at C5-C6 and C6-C7. The prevertebral soft tissues are within normal limits. Moderate biapical pleural thickening/scarring. IMPRESSION: 1. No displaced cervical spine fracture or malalignment. 2. Diffuse osteopenia. Electronically signed by: Matias Bourgeois DO 09/18/2019 1:24 PM CDT
--- NOTE | 2019-09-18 13:37 | RAD ---
EXAM DESCRIPTION: Forearm, left CLINICAL HISTORY: 79 years Female, fall with left wrist/forearm/elbow/humerus pain COMPARISON: None. FINDINGS: Two views left forearm demonstrate mild osteopenia and extensive vascular calcification there are displaced mildly impacted minimally angulated fractures of the distal radius at the metaphyseal level and involving the distal ulna with slight fragmentation at the fracture site. Scapholunate dissociation noted without dislocation. The radial and ulnar shafts appear intact proximally. IMPRESSION: Mildly displaced and impacted fracture of the distal radius and ulna. Electronically signed by: Rahul Bhandari MD 09/18/2019 1:35 PM CDT
--- NOTE | 2019-09-18 13:37 | RAD ---
EXAM DESCRIPTION: Humerus,Left CLINICAL HISTORY: 79 years Female, fall with left wrist/forearm/elbow/humerus pain COMPARISON: None. FINDINGS: Two radiographic views left arm demonstrate humerus intact without fracture or dislocation or foreign body. Osteopenia is present. No gross abnormality of the chest wall noted. IMPRESSION: Negative left arm. Osteopenia is present. Electronically signed by: Rahul Bhandari MD 09/18/2019 1:36 PM CDT
--- NOTE | 2019-09-18 13:39 | RAD ---
EXAM DESCRIPTION: Wrist,Left 3 Views CLINICAL HISTORY: 79 years, Female, fall with left wrist/forearm/elbow/humerus pain COMPARISON: None TECHNIQUE: Three views left wrist FINDINGS: Bones are osteopenic with extensive arterial vascular calcification. Impacted fracture of the distal radius and slightly comminuted fracture of the distal ulna at the junction of the ulnar shaft and neck. Scapholunate dissociation is present without evidence of carpal dislocation. Mild dorsal angulation of the distal radius and dorsal displacement is evident. Advanced degenerative changes involving the base of the thumb at the CMC joint noted IMPRESSION: 1. Impacted slightly displaced and dorsally angulated distal radial fracture as well as mildly comminuted distal ulnar fracture. 2. Scapholunate dissociation and generalized osteopenia. Electronically signed by: Rahul Bhandari MD 09/18/2019 1:37 PM CDT
--- NOTE | 2019-09-18 13:40 | RAD ---
EXAM DESCRIPTION: Elbow, left 2 Views CLINICAL HISTORY: fall with left wrist/forearm/elbow/humerus pain COMPARISON: None Available. TECHNIQUE: Two views left elbow FINDINGS: Two views of the elbow demonstrate osteopenia and joint space narrowing and subchondral sclerosis involving the radiohumeral articulation. No fracture or dislocation or soft tissue foreign body or evidence of hemarthrosis or large joint effusion noted. IMPRESSION: 1. Osteopenia and degenerative change without fracture or dislocation of the left elbow Electronically signed by: Rahul Bhandari MD 09/18/2019 1:39 PM CDT
--- NOTE | 2019-09-18 14:03 | ED.PDOC ---
History of Present Illness - General Chief Complaint: Trauma Stated Complaint: s/p fall,Left wrist pain Time Seen by Provider: 09/18/19 12:41 Source: patient, RN notes reviewed, Vital Signs reviewed Exam Limitations: no limitations - History of Present Illness Initial Comments: Patient is a 79-year-old white female who was injured when she slipped and fell backwards. Patient denies any headache at this time though she had some pain upon falling. She also had some mild neck pain that has resolved. The pain in her head and neck were throbbing in nature. Mild in intensity. Nonradiating. Patient complains of left wrist pain and there is some deformity of the left wrist. Pain is throbbing in nature. Worse with movement or palpation. Better with immobilization. Moderate intensity. Patient denies any numbness distally. Occurred: just prior to arrival Severity: moderate Pain Location: upper extremity - Left wrist Method of Injury: fall Improving Factors: immobilization Worsening Factors: movement Loss of Consciousness: no loss of consciousness Associated Symptoms (Fall): denies symptoms Allergies/Adverse Reactions: Allergies Codeine Allergy (Mild, Verified 04/27/19 15:34) rash Penicillins Allergy (Verified 04/27/19 15:34) rash Home Medications: Ambulatory Orders Docusate Sodium [Stool Softener] 100 mg PO BEDTIME 10/15/15 Furosemide 20 mg PO DAILY 10/15/15 Gabapentin 400 mg PO BID 10/15/15 Isosorbide Mononitrate [Imdur] 30 mg PO DAILY 10/15/15 Omeprazole 10 mg PO DAILY 10/15/15 Potassium Chloride [Klor-Con] 20 meq PO DAILY 10/15/15 Telmisartan 40 mg PO DAILY 10/15/15 Rosuvastatin Calcium [Crestor] 10 mg PO BEDTIME 05/04/16 Cholecalciferol [Vitamin D] 1,000 unit PO DAILY 01/17/17 Levothyroxine Sodium 125 mcg PO DAILY 04/24/19 Aspirin [Baby Aspirin] 162 mg PO DAILY chwtab 04/25/19 Acetaminophen W/ Codeine [Tylenol W/ CODEINE #3] 1 ea PO Q6H #20 09/18/19 Ondansetron [Ondansetron Odt] 4 mg PO Q6H #20 tab 09/18/19 Review of Systems - Review of Systems Constitutional: States: no symptoms reported, see HPI. Denies: chills, fever, malaise EENTM: States: no symptoms reported. Denies: blurred vision, double vision Respiratory: Denies: cough, short of breath Cardiology: States: no symptoms reported. Denies: chest pain, palpitations Gastrointestinal/Abdominal: States: no symptoms reported. Denies: abdominal pain, diarrhea, nausea Genitourinary: States: no symptoms reported Musculoskeletal: States: joint pain - Left wrist. Denies: back pain Skin: States: no symptoms reported. Denies: change in color, rash Endocrine: States: no symptoms reported Hematologic/Lymphatic: States: no symptoms reported All other Systems: No Change from Baseline Past Medical History (General) - Patient Medical History Hx Seizures: No Hx Stroke: Yes Hx Dementia: No Hx Asthma: No Hx of COPD: No Hx Cardiac Disorders: Yes Hx Congestive Heart Failure: Yes Hx Pacemaker: No Hx Hypertension: Yes Hx Thyroid Disease: Yes Hx Diabetes: No Hx Gastroesophageal Reflux: No Hx Renal Disease: No Hx Cancer: No Hx of HIV: No Hx Hepatitis C: No Hx MRSA: No Surgical History: appendectomy, cholecystectomy, coronary bypass surgery, Hysterectomy - Vaccination History Hx Tetanus, Diphtheria Vaccination: Yes Hx Influenza Vaccination: No Hx Pneumococcal Vaccination: Yes - Social History Hx Tobacco Use: No Hx Chewing Tobacco Use: No Hx Alcohol Use: No Hx Substance Use: No Hx Substance Use Treatment: No Hx Depression: No Hx Physical Abuse: No Hx Emotional Abuse: No Hx Suspected Abuse: No - Female History Patient : No Family Medical History - Family History Mother Family History: Unknown Living Status: Cause of : cancer mouth Hx Family Asthma: No Hx Family Stroke: Yes - dad Hx Cardiac Disease: Yes Hx Family Cancer: Yes - leukemia Father Living Status: Age at (years of age): 83 Physical Exam - Physical Exam General Appearance: Alert, Anxious, Obvious distress, Well Developed, Well Groomed, Well Hydrated, Well Nourished Head Injury: no evidence of injury Eye Exam: bilateral normal ENT Exam: hearing grossly normal, no evidence of ENT injury, no dental injury Neck Exam: non-tender, full range of motion, normal alignment, normal inspection Cardiovascular/Respiratory: regular rate, rhythm, no M/R/G, normal peripheral pulses, no JVD Gastrointestinal/Abdominal: normal bowel sounds, non tender, soft Back Exam: normal inspection, no CVA tenderness, no vertebral tenderness Extremity Exam: pelvis stable, bony-point tenderness - Left wrist. 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 09/18/19 14:51 Patient with a distal left radius and ulnar fractures. Additionally she has a scapholunate dissociation. I have discussed this with Dr. erazo and he asked that the patient be placed in a sugar tong splint and follow-up with him in the next 1 to 2 days. Plan on discharge home with patient in a sugar tong splint with a sling as well as a prescription for Tylenol 3 I discussed this plan of care with the granddaughter and the patient and they voiced understanding and agreement with the plan of care. Eliel Dominguez M.D. - Results/Orders Results/Orders: EXAM DESCRIPTION: Head CT CLINICAL HISTORY: fall with MURPHY. Pt on Eliquis COMPARISON: CT head 04/24/2019. TECHNIQUE: Non contrast cranial CT with multiplanar reconstructions. FINDINGS: Changes of left frontotemporal craniotomy with chronic left inferior frontal lobe encephalomalacia are unchanged. No acute intracranial hemorrhage, transcortical infarct, mass or mass effect. No intra or extra-axial fluid collection. No focal edema or midline shift. The ventricle and sulci are normal for age. No hydrocephalus. The bonds-white matter differentiation is intact. No acute calvarial fracture. The visualized paranasal sinuses and the mastoids are clear. IMPRESSION: 1. No acute intracranial abnormality. 2. Stable left frontotemporal craniotomy and chronic left inferior frontal lobe encephalomalacia. This exam was performed according to our departmental dose-optimization program, which includes automated exposure control, adjustment of the mA and/or kV according to patient size and/or use of iterative reconstruction technique. Electronically signed by: Matias Bourgeois DO 09/18/2019 1:18 PM CDT EXAM DESCRIPTION: Cervical Spine CT CLINICAL HISTORY: fall with pain COMPARISON: CTA neck 04/24/2019. TECHNIQUE: Cervical CT is performed with thin-section axial imaging. MPRs are created and reviewed as well. This exam was performed according to our departmental dose- optimization program, which includes automated exposure control, adjustment of the mA and/or kV according to patient size and/or use of iterative reconstruction technique. FINDINGS: Diffuse osteopenia partially limits evaluation. Mild levocurvature of the cervical spine can be positional. The cervical spinal alignment is otherwise intact without significant listhesis. The vertebral body heights are relatively maintained. No displaced fracture or significantly appearing subluxation is seen. The craniocervical junction is intact. The atlantodental dental interval is intact. Mild to moderate multilevel cervical spine with intervertebral disc height loss, endplate sclerosis and small marginal osteophyte formation most pronounced at C5-C6 and C6-C7. The prevertebral soft tissues are within normal limits. Moderate biapical pleural thickening/scarring. IMPRESSION: 1. No displaced cervical spine fracture or malalignment. 2. Diffuse osteopenia. Electronically signed by: Matias Bourgeois DO 09/18/2019 1:24 PM CDT EXAM DESCRIPTION: Humerus,Left CLINICAL HISTORY: 79 years Female, fall with left wrist/forearm/elbow/humerus pain COMPARISON: None. FINDINGS: Two radiographic views left arm demonstrate humerus intact without fracture or dislocation or foreign body. Osteopenia is present. No gross abnormality of the chest wall noted. IMPRESSION: Negative left arm. Osteopenia is present. Electronically signed by: Rahul Bhandari MD 09/18/2019 1:36 PM EXAM DESCRIPTION: Elbow, left 2 Views CLINICAL HISTORY: fall with left wrist/forearm/elbow/humerus pain COMPARISON: None Available. TECHNIQUE: Two views left elbow FINDINGS: Two views of the elbow demonstrate osteopenia and joint space narrowing and subchondral sclerosis involving the radiohumeral articulation. No fracture or dislocation or soft tissue foreign body or evidence of hemarthrosis or large joint effusion noted. IMPRESSION: 1. Osteopenia and degenerative change without fracture or dislocation of the left elbow Electronically signed by: Rahul Bhandari MD 09/18/2019 1:39 PM EXAM DESCRIPTION: Forearm, left CLINICAL HISTORY: 79 years Female, fall with left wrist/forearm/elbow/humerus pain COMPARISON: None. FINDINGS: Two views left forearm demonstrate mild osteopenia and extensive vascular calcification there are displaced mildly impacted minimally angulated fractures of the distal radius at the metaphyseal level and involving the distal ulna with slight fragmentation at the fracture site. Scapholunate dissociation noted without dislocation. The radial and ulnar shafts appear intact pro ximally. IMPRESSION: Mildly displaced and impacted fracture of the distal radius and ulna. Electronically signed by: Rahul Bhandari MD 09/18/2019 1:35 PM EXAM DESCRIPTION: Wrist,Left 3 Views CLINICAL HISTORY: 79 years, Female, fall with left wrist/forearm/elbow/humerus pain COMPARISON: None TECHNIQUE: Three views left wrist FINDINGS: Bones are osteopenic with extensive arterial vascular calcification. Impacted fracture of the distal radius and slightly comminuted fracture of the distal ulna at the junction of the ulnar shaft and neck. Scapholunate dissociation is present without evidence of carpal dislocation. Mild dorsal angulation of the distal radius and dorsal displacement is evident. Advanced degenerative changes involving the base of the thumb at the CMC joint noted IMPRESSION: 1. Impacted slightly displaced and dorsally angulated distal radial fracture as well as mildly comminuted distal ulnar fracture. 2. Scapholunate dissociation and generalized osteopenia. Electronically signed by: Rahul Bhandari MD 09/18/2019 1:37 PM - EKG/XRAY/CT CT Ordered: Yes Departure - Departure Clinical Impression: Scapholunate dissociation of left wrist Radius/ulna fracture Qualifiers: Encounter type: initial encounter Fracture type: closed Laterality: left Qualified Code(s): S52.92XA - Unspecified fracture of left forearm, initial encounter for closed fracture; S52.202A - Unspecified fracture of shaft of left ulna, initial encounter for closed fracture Fall Qualifiers: Encounter type: initial encounter Qualified Code(s): W19.XXXA - Unspecified fall, initial encounter Time of Disposition: 14:54 Disposition: Discharge to Home or Self Care Condition: Good Departure Forms: ED Discharge - Pt. Copy, Patient Portal Self Enrollment Instructions: Wrist Fracture (DC) Activity: increase activity as tolerated Referrals: Rahul Lobo MD [Primary Care Provider] - 1-2 Weeks Will Erazo MD [Active Staff] - 1-2 Days Prescriptions: Acetaminophen W/ Codeine [Tylenol W/ CODEINE #3] 1 ea PO Q6H #20 Ondansetron [Ondansetron Odt] 4 mg PO Q6H #20 tab Home Medications: Ambulatory Orders Docusate Sodium [Stool Softener] 100 mg PO BEDTIME 10/15/15 Furosemide 20 mg PO DAILY 10/15/15 Gabapentin 400 mg PO BID 10/15/15 Isosorbide Mononitrate [Imdur] 30 mg PO DAILY 10/15/15 Omeprazole 10 mg PO DAILY 10/15/15 Potassium Chloride [Klor-Con] 20 meq PO DAILY 10/15/15 Telmisartan 40 mg PO DAILY 10/15/15 Rosuvastatin Calcium [Crestor] 10 mg PO BEDTIME 05/04/16 Cholecalciferol [Vitamin D] 1,000 unit PO DAILY 01/17/17 Levothyroxine Sodium 125 mcg PO DAILY 04/24/19 Aspirin [Baby Aspirin] 162 mg PO DAILY chwtab 04/25/19 Acetaminophen W/ Codeine [Tylenol W/ CODEINE #3] 1 ea PO Q6H #20 09/18/19 Ondansetron [Ondansetron Odt] 4 mg PO Q6H #20 tab 09/18/19
[2019-09-18 15:30] VITALS: BP 134/86; TEMP 98.4; O2SAT 95
== END 2019-09-18 15:11 | disposition home or self-care (01) ==
LOC: ER 12:12
DX: S52.92XA Unspecified fracture of left forearm, initial encounter for closed fracture (principal); S52.202A Unspecified fracture of shaft of left ulna, initial encounter for closed fracture; R51 Headache; M54.2 Cervicalgia; I11.0 Hypertensive heart disease with heart failure; I50.9 Heart failure, unspecified; M85.832 Other specified disorders of bone density and structure, left forearm; Z79.01 Long term (current) use of anticoagulants; Z86.73 Personal history of transient ischemic attack (TIA), and cerebral infarction without residual deficits; Z79.82 Long term (current) use of aspirin; W01.0XXA Fall on same level from slipping, tripping and stumbling without subsequent striking against object, initial encounter; Y92.9 Unspecified place or not applicable
CPT/HCPCS: 70450; 72125; 73060; 73070; 73090; 73110; J3010

== ENCOUNTER → 2019-09-21 | Outpatient (CLI) | payer MEDICARE ==
--- NOTE | 2019-09-21 10:04 | RAD ---
EXAM DESCRIPTION: Wrist,Left 3 Views CLINICAL HISTORY: 79 years, Female, WRIST PAIN COMPARISON: Previous study September 18, 2019 FINDINGS: Left wrist 3 x-ray views is positive for fracture of the distal radius and ulna. Fracture lines appear impacted with minimal comminution. Widened scapholunate distance consistent with ligamentous disruption. Degenerative narrowing of the radiocarpal joint. Advanced degenerative changes of the lateral carpus. Degenerative changes at the metacarpal phalangeal joints with prominent spurring at the interphalangeal joint of the thumb. Compared to the previous study in September 17, no change in alignment at the fracture site. No additional splaying of the fragments. There is decreased degree of angulation on the lateral view compared to previous study. Fracture line extends into the radiocarpal joint. IMPRESSION: Fractured distal left radius and ulna. Electronically signed by: Nilton Wilkinson MD 09/21/2019 10:03 AM CDT
== END ==
LOC: RAD 09:19
PROVIDERS: ATTEND Orthopaedic Surgery
DX: S52.502D Unspecified fracture of the lower end of left radius, subsequent encounter for closed fracture with routine healing (principal); S52.602D Unspecified fracture of lower end of left ulna, subsequent encounter for closed fracture with routine healing

== ENCOUNTER → 2019-10-15 | Outpatient (CLI) | payer MEDICARE ==
--- NOTE | 2019-10-15 10:40 | RAD ---
EXAM DESCRIPTION: Wrist,Left 3 Views CLINICAL HISTORY: CLOSED FRACTURE OF DISTAL END OF RADIUS COMPARISON: September 21, 2019 IMPRESSION: 3 views of the left wrist again demonstrate transversely oriented fractures of the distal radius and ulna with increased indistinctness of the fracture margins and periosteal reaction . Mild callus formation is seen with partial healing. No significant change in alignment of the fracture fragments. Nondisplaced avulsion fracture of the ulnar styloid process is again seen. Widening of the scapholunate joint is again seen similar to previous exam. 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 Osseous structures are diffusely osteopenic. Severe vascular calcifications are seen. Electronically signed by: Martínez Acuna MD 10/15/2019 10:38 AM CDT
== END ==
LOC: RAD 10:05
PROVIDERS: ATTEND Orthopaedic Surgery
DX: S52.502D Unspecified fracture of the lower end of left radius, subsequent encounter for closed fracture with routine healing (principal); S52.615D Nondisplaced fracture of left ulna styloid process, subsequent encounter for closed fracture with routine healing; M24.832 Other specific joint derangements of left wrist, not elsewhere classified; M18.9 Osteoarthritis of first carpometacarpal joint, unspecified; M85.842 Other specified disorders of bone density and structure, left hand; I73.9 Peripheral vascular disease, unspecified

== ENCOUNTER → 2019-11-30 | Outpatient (CLI) | payer MEDICARE | LOC: NC 10:45 | PROVIDERS: ATTEND Family Medicine | DX: I11.0 Hypertensive heart disease with heart failure (principal); I50.9 Heart failure, unspecified; I48.91 Unspecified atrial fibrillation; K85.90 Acute pancreatitis without necrosis or infection, unspecified ==

== ENCOUNTER → 2019-12-07 | Outpatient (CLI) | payer MEDICARE ==
--- NOTE | 2019-12-07 16:00 | RAD ---
EXAM DESCRIPTION: Wrist,Left 3 Views CLINICAL HISTORY: 79 years Female, CLOSED FRACTURE OF DISTAL END OF LEFT RADIUS COMPARISON: October 15, 2019 Findings: 3 view(s)/radiograph(s) Healing fractures of the distal left radius and ulna metaphyses. Improved alignment. Ulnar positive configuration. Osteopenia. No acute fracture identified. Similar degenerative changes. Vascular calcifications. Healing ulnar styloid fracture. IMPRESSION: Healing fractures of the distal left radius and ulna. Electronically signed by: Caleb Granda MD 12/07/2019 3:59 PM CDT
== END ==
LOC: RAD 09:58
PROVIDERS: ATTEND Orthopaedic Surgery
DX: S52.502D Unspecified fracture of the lower end of left radius, subsequent encounter for closed fracture with routine healing (principal); S52.602D Unspecified fracture of lower end of left ulna, subsequent encounter for closed fracture with routine healing

== ENCOUNTER → 2020-03-05 | Outpatient (CLI) | payer MEDICARE | LOC: NC 09:52 | PROVIDERS: ATTEND Family Medicine | DX: I11.0 Hypertensive heart disease with heart failure (principal); I50.22 Chronic systolic (congestive) heart failure; I25.10 Atherosclerotic heart disease of native coronary artery without angina pectoris; E03.9 Hypothyroidism, unspecified ==